=== PATIENT | female | born 1990 | race Caucasian/White ===

== ENCOUNTER 2018-03-23 21:04 | Inpatient (IN) ==
--- NOTE | 2018-03-23 21:52 | XR ---
EXAM DATE: 03/23/2018 9:22 PM EDT AGE/SEX: 27 years / Female INDICATIONS: . Chest pain and shortness of breath for 24 hours. CLINICAL DATA: This is the patient's initial encounter. Patient reports that signs and symptoms have been present for 1 day and indicates a pain score of 4/10. MEDICAL/SURGICAL HISTORY: . Smoker. Collapsed lung 04/2017. None. COMPARISON: No prior exams available for comparison. FINDINGS: AP and lateral views of the chest demonstrate the lungs to be symmetrically hyper aerated without jose dence of mass, infiltrate or effusion. The cardiomediastinal contours are unremarkable. Osseous str uctures are intact. CONCLUSION: Hyperinflation probably due to a deep inspiratory effort with no acute cardiopulmonary process. Electronically signed by: Loc Soto MD 03/23/2018 9:50 PM EDT
[2018-03-23] MEDS ORDERED: Ketorolac Inj 30 MG/ML (IVP) Vial IV.PUSH ONE (23:03)
--- NOTE | 2018-03-23 23:06 | ED ---
HPI General Chief Complaint: Chest Pain Stated Complaint: Patient states chest pain Time Seen by Provider: 03/23/18 22:56 Source: patient Mode of arrival: ambulatory Limitations: no limitations History of Present Illness HPI narrative: The patient is a 27-year-old female who presents to the emergency department for chest pain and shortness of breath. The patient developed shortness of breath yesterday that was followed by chest pain. The chest pain is anterior, sharp, located just to the right of the sternal border, and intermittent. The pain is worse with inspiration and movement. The patient has had similar pain in the past secondary to a pneumothorax that was less than 10% per the patient's report, treated with oxygenation and hospitalization tube was placed at that time. The patient denies any cough. The patient denies any control, recent surgery, recent travel, or recent prolonged hospitalization. The patient denies any lower extremity edema. The patient denies . She denies any associated nausea, vomiting, diarrhea , abdominal pain, or fever. Symptoms are moderate. There are no current alleviating or exacerbating factors MD complaint: Reports chest pain STEMI Alert: No Onset (ago): day(s) Duration: intermittent Onset: other Pain location: Reports right chest Severity: moderate Severity scale (1-10): 6 Quality: Reports sharp Pain radiation: Reports back Relieving factors: nothing Exacerbating factors: inspiration and movement Context: Reports other (hx of PTX) Associated symptoms: Reports nausea Treatments prior to arrival chest pain: Reports none Related Data On Oral Contraceptives: No Home Medications Medication Instructions Recorded Confirmed No Known Home Medications 03/23/18 03/23/18 No Known Home Medications 03/23/18 03/23/18 Allergies Allergy/AdvReac Type Severity Reaction Status Date / Time Penicillins Allergy Rash Verified 03/23/18 21:17 Sulfa (Sulfonamide Allergy Edema Verified 03/23/18 21:17 Antibiotics) Review of Systems ROS: all other systems reviewed are negative [facility] Medical History Medical History delivery delivered (Acute) Collapsed lung (Acute) IBS (irritable bowel syndrome) (Acute) Panic attack (Acute) Social History Social History Substance History: No History of Abuse Smoking Status: Heavy tobacco smoker Tobacco Type: Cigarettes How Often Do You Have a Drink Containing Alcohol: Monthly or less Recent Travel in [facility] within the Last 8 Weeks: No Recent Out of Country Travel within the Last 8 Weeks: No Exam Narrative Exam Narrative: GENERAL: Awake, alert, pleasant 27-year-old female who appears her stated age and is in no acute respiratory distress. SKIN: Focused skin assessment warm/dry. HEAD: Atraumatic. Normocephalic. EYES: Pupils equal and round. No scleral icterus. No injection or drainage. ENT: No nasal bleeding or discharge. Mucous membranes pink and moist. NECK: Trachea midline. No JVD. CARDIOVASCULAR: Regular rate and rhythm. No murmur appreciated. Palpation the chest wall does not reproduce symptoms. RESPIRATORY: No accessory muscle use. Clear to auscultation. Breath sounds equal bilaterally. GASTROINTESTINAL: Abdomen soft, non-tender, nondistended. MUSCULOSKELETAL: No obvious deformities. No clubbing. No cyanosis. No edema. Movement of the right upper extremity against resistance does not exacerbate symptoms. NEUROLOGICAL: Awake and alert. No obvious cranial nerve deficits. Motor grossly within normal limits. Normal speech. PSYCHIATRIC: Appropriate mood and affect; insight and judgment normal. Course Initial Documented Vital Signs Temperature 98.5 F 03/23/18 21:17 Pulse Rate 76 03/23/18 21:17 Respiratory Rate 18 03/23/18 21:17 Blood Pressure 115/65 03/23/18 21:17 Pulse Oximetry 100 03/23/18 21:17 Last Documented Vital Signs Temperature 98.5 F 03/23/18 21:17 Pulse Rate 68 03/23/18 23:29 Respiratory Rate 14 03/23/18 23:25 Blood Pressure 117/70 03/23/18 23:25 Pulse Oximetry 100 03/23/18 23:49 Medical Decision Making [facility] Narrative Medical decision making narrative: IV was established, labs are drawn and sent, and the patient was placed on cardiac telemetry monitoring and continuous pulse oximetry monitoring. EKG was ordered and interpreted. Chest x-ray was obtained. The patient does have a history pneumothorax, chest x-ray reveals no obvious pneumothorax, d-dimer was sent to lab. The patient was administered Toradol 30 mg intravenously for pain. CPK and troponin were sent to lab to evaluate for possible pericarditis/myocarditis. Patient's white count was normal at 10.0. D-dimer was negative, therefore, no indication for CT pulmonary angiogram. However, patient does have a history pneumothorax, initial chest x-ray was negative. Unexplained pleurisy, therefore, CT of the thorax without IV contrast was ordered revealing cavitary lesions in the upper lobes bilaterally suspicious for septic emboli or bronchopneumonia. The patient denies any history of IV drug abuse. She has no current fever or cough , unexplained cavitary lesions are somewhat concerning. Therefore, patient was covered with Rocephin and Zithromax and will be admitted to the medical service. Medical Screen Exam Complete: Yes Emergency Medical Condition: Yes Differential Diagnosis Differential Diagnosis: Differential diagnosis includes pericarditis, myocarditis, pneumothorax, pulmonary embolism, costochondritis, musculoskeletal pain, pleurisy, pneumonia. Lab Data Result diagrams: 03/23/18 23:20 03/23/18 23:20 Lab Results 03/23/18 03/23/18 03/23/18 Range/Units 23:20 23:20 23:20 WBC 10.0 (4.0-11.0) th/mm3 RBC 5.32 H (4.00-5.30) mil/mm3 Hgb 15.3 (11.6-15.3) gm/dL Hct 45.2 (35.0-46.0) % MCV 85.0 (80.0-100.0) fL MCH 28.8 (27.0-34.0) pg MCHC 33.9 (32.0-36.0) % RDW 13.8 (11.6-17.2) % Plt Count 212 (150-450) th/mm3 MPV 8.1 (7.0-11.0) fL Neut % (Auto) 57.8 (16.0-70.0) % Lymph % (Auto) 32.3 (9.0-44.0) % [place] % (Auto) 7.6 (0.0-8.0) % Eos % (Auto) 1.8 (0.0-4.0) % Baso % (Auto) 0.5 (0.0-2.0) % Neut # (Auto) 5.8 (1.8-7.7) th/mm3 Lymph # (Auto) 3.2 (1.0-4.8) th/mm3 [place] # (Auto) 0.8 (0.0-0.9) th/mm3 Eos # (Auto) 0.2 (0.0-0.4) th/mm3 Baso # (Auto) 0.0 (0.0-0.2) th/mm3 WBC Differential . Differential Comment Auto diff final D-Dimer Quant (PE/DVT) 0.22 (0.00-0.50) mg/L FEU Sodium 138 (136-145) meq/L Potassium 3.7 (3.5-5.1) meq/L Chloride 105 (98-107) meq/L Carbon Dioxide 25.7 (21.0-32.0) meq/L Anion Gap 7 (5-15) meq/L BUN 12 (7-18) mg/dL Creatinine 0.69 (0.50-1.00) mg/dL Estimated GFR Greater than 89 (>89) mL/min Random Glucose 88 (74-106) mg/dL Calcium 8.9 (8.5-10.1) mg/dL Total Bilirubin 0.3 (0.2-1.0) mg/dL AST 10 L (15-37) U/L ALT 22 (10-53) U/L Alkaline Phosphatase 61 (45-117) U/L Total Creatine Kinase 65 (26-192) U/L Troponin I Less than 0.02 L (0.02-0.05) ng/mL Total Protein 7.6 (6.4-8.2) g/dL Albumin 4.0 (3.4-5.0) g/dL Imaging Data Attestation: I personally reviewed and interpreted this imaging study as follows : My impression: Chest x-ray reveals no obvious pneumothorax Radiologist's impression: Chest X-Ray 03/23/18 21:22 CONCLUSION: Hyperinflation probably due to a deep inspiratory effort with no acute cardiopulmonary process. Chest CT 03/24/18 00:00 CONCLUSION: Multiple small focal patchy densities seen in the upper lungs with at least 2 of these been partially cavitary. This raises the possibility of septic emboli versus bronchopneumonia. ECG Data EKG Prior to Arrival: No Attestation: I personally reviewed and interpreted this ECG as follows: Interpretation: EKG reveals normal sinus rhythm with a rate of 60 changes or ectopy noted. No MS depression or ST elevation noted. Discharge Plan Discharge Disposition Patient Disposition: 30 Still Patient Discharge Condition Condition: Stable Discharge Details Diagnosis: Pulmonary cavitary lesion Physicians Team ED Provider: Markus Luong Primary Care Provider: Primary Care PhysiciMalou Rxs /Orders / Referrals /Forms Prescriptions: No Action No Known Home Medications RF: 0 No Known Home Medications RF: 0 Discharge Instructions Patient Printed Instructions: Chest Pain (ED) Status ED Status: Pending Admission
[2018-03-23 23:34] LABS: Baso % (Auto) 0.5 % (0.0-2.0); Eos # (Auto) 0.2 th/mm3 (0.0-0.4); Eos % (Auto) 1.8 % (0.0-4.0); Hematocrit 45.2 % (35.0-46.0); Hemoglobin 15.3 gm/dL (11.6-15.3); Lymph # (Auto) 3.2 th/mm3 (1.0-4.8); Lymph % (Auto) 32.3 % (9.0-44.0); Mean Corpuscular HGB Conc 33.9 % (32.0-36.0); Mean Corpuscular Hemoglobin 28.8 pg (27.0-34.0); Mean Platelet Volume 8.1 fL (7.0-11.0); Mono # (Auto) 0.8 th/mm3 (0.0-0.9); Mono % (Auto) 7.6 % (0.0-8.0); Neut # (Auto) 5.8 th/mm3 (1.8-7.7); Neut % (Auto) 57.8 % (16.0-70.0); Platelet Count 212 th/mm3 (150-450); Red Blood Count 5.32 mil/mm3 (4.00-5.30); Red Cell Distribution Width 13.8 % (11.6-17.2)
[2018-03-23 23:54] LABS: Anion Gap 7 meq/L (5-15); Aspartate Aminotransferase 10 U/L (15-37); Blood Urea Nitrogen 12 mg/dL (7-18); Calcium 8.9 mg/dL (8.5-10.1); Carbon Dioxide 25.7 meq/L (21.0-32.0); Chloride 105 meq/L (98-107); Glomerular Filtration Rate Greater Than 89 mL/min (>89); Glucose,Random 88 mg/dL (74-106); Potassium 3.7 meq/L (3.5-5.1); Sodium 138 meq/L (136-145)
[2018-03-23 23:55] LABS: Alanine Aminotransferase 22 U/L (10-53)
[2018-03-23 23:59] LABS: Alkaline Phosphatase 61 U/L (45-117); Total Protein 7.6 g/dL (6.4-8.2)
[2018-03-24 00:01] LABS: Creatine Kinase 65 U/L (26-192)
--- NOTE | 2018-03-24 01:03 | CT ---
EXAM DATE: 03/24/2018 12:06 AM EDT AGE/SEX: 27 years / Female INDICATIONS: Right upper chest pain and shortness of breath. CLINICAL DATA: This is the patient's initial encounter. Patient reports that signs and symptoms have been present for 2 days and indicates a pain score of 10/10. MEDICAL/SURGICAL HISTORY: . Pneumothorax. None. RADIATION DOSE: 5.30 CTDI (mGy) COMPARISON: No prior exams available for comparison. TECHNIQUE: Multiple contiguous axial images were obtained through the chest without contrast. Image s were obtained in suspended respiration using multiple row detector helical technique. Using automa krystle exposure control and adjustment of the mA and/or kV according to patient size, radiation dose was kept as low as reasonably achievable to obtain optimal diagnostic quality images. DICOM format imag e data is available electronically for review and comparison. FINDINGS: Lungs: There are several small patchy areas of focal density seen in the upper lungs bilaterally. Th e 2 largest areas in the left upper lung measuring up to 1.4 cm appear partially cavitary. Mediastinum: There is good visualization of the great vessels of the middle mediastinum. No evidenc e of mediastinal or hilar adenopathy/mass. Pleurae: No evidence of focal thickening or pleural effusion. Axillae: Unremarkable. Bony Structures: Unremarkable. Miscellaneous: The examination was extended to include the upper abdomen, and both adrenal glands ar e normal in size and configuration. CONCLUSION: Multiple small focal patchy densities seen in the upper lungs with at least 2 of these been partially cavitary. This raises the possibility of septic emboli versus bronchopneumonia. Electronically signed by: Umesh Rosado MD 03/24/2018 1:02 AM EDT
[2018-03-24] MEDS ORDERED: Azithromycin Inj 500 MG in Sodium Chlor 0.9% Inj 250 ML IV.SIG ONE (01:09)
[2018-03-24] MEDS ORDERED: Morphine Inj 4 MG/ML Vial IV.PUSH ONE (01:09)
[2018-03-24] MEDS ORDERED: Sod Chloride 0.9% Inj 1,000 ML IV.SIG SCH (01:15)
[2018-03-24] MEDS ORDERED: Bisacodyl 10 MG Supp RECTAL PRN (04:42)
[2018-03-24] MEDS ORDERED: Acetaminophen 325 MG Tablet PO PRN (04:42)
--- NOTE | 2018-03-24 09:07 | P.HPIM ---
History of Present Illness Service: [facility] Primary Care Physician: No Primary Care Physician Chief Complaint: Chest pain History of Present Illness: 27-year-old female who reports a history of a small spontaneous pneumothorax a year ago presented to the hospital with complaint of pleuritic type chest pain. The pain has been present for the past couple of days and seems to have gotten worse with deep breathing. She denies cough, fever, or sick contact. She reports difficulty breathing at times due to the pain. She reports her symptoms has been intermittent. She is an every day smoker. She denies illicit drug use, specifically IV drug use. Chest CT in the emergency room is read as "multiple small focal patchy densities seen in the upper lungs with at least 2 of these been partially cavitary. This raises the possibility of septic emboli versus bronchopneumonia". The patient will be admitted for further workup and treatment. - Diagnosis (1) Pleuritic chest pain (2) Pulmonary cavitary lesion Inpatient Certification: I certify that the inpatient services were ordered in accordance with Medicare regulations governing the order. This includes certification that hospital inpatient services are reasonable and necessary and in the case of services not specified as inpatient-only under 42 CFR 419.22(n), that they are appropriately provided as inpatient services in accordance to with the 2-midnight benchmark under 43 CFR 412.3(e) Estimated Total Length of Stay (Days): 2 Plans for Post Hospital Care: Not yet determined Review of Systems All other systems reviewed negative except as stated [facility] - History History Provided By: Patient - Medical History Medical History: Medical History (Last Updated 03/24/18 @ 10:42 by Jean Claude Cooper MD) delivery delivered (Acute) Collapsed lung IBS (irritable bowel syndrome) Panic attack - Family History Family History: Family History (Last Updated 03/24/18 @ 10:43 by Jean Claude Cooper MD) Other Family history reviewed with no changes - Social History I have reviewed the patient's Social History: Yes - Tobacco History Tobacco Use In Past 30 Days: Yes Smoking Status: Heavy tobacco smoker Tobacco Type: Cigarettes - Alcohol History How Often Do You Have a Drink Containing Alcohol: Monthly or less - Substance Use History Substance History: No History of Abuse - Travel History Recent Travel in the [place] Within the Last 8 Weeks: No Recent Travel Out of the Country Within the Last 8 Weeks: No - Immunization History Tetanus Immunization: >5 Years Medications and Allergies Active Medications: Active Medications Acetaminophen (Tylenol) 650 mg PO Q4H PRN PRN Reason: Temp > 100.4 Last Admin: 03/24/18 08:13 Dose: 650 mg Al Hydroxide/Mg Hydroxide (Milk Of Magnesia Liq) 30 ml PO Q12H PRN PRN Reason: Mild Constipation Bisacodyl (Dulcolax Supp) 10 mg RECTAL DAILY PRN PRN Reason: SEVERE CONSITIPATION Sodium Chloride (Ns Inj) 1,000 mls @ 0 mls/hr IV.SIG BOLUS PEDRO Last Infusion: 03/24/18 02:29 Dose: Infused Azithromycin 500 mg/ Sodium (Chloride) 250 mls @ 250 mls/hr IV.SIG Q24H PEDRO Ceftriaxone Sodium 1,000 mg/ (Sodium Chloride) 100 mls @ 200 mls/hr IV.SIG Q24H PEDRO Lactulose (Lactulose Liq) 30 ml PO DAILY PRN PRN Reason: SEVERE CONSITIPATION Ondansetron HCl (Zofran Inj) 4 mg IV.PUSH Q6H PRN PRN Reason: NAUSEA OR VOMITING Senna/Docusate Sodium (Carolyn-Colace) 1 tab PO BID PEDRO Sennosides (Senokot) 17.2 mg PO Q12H PRN PRN Reason: Moderate Constipation Sodium Chloride (Ns Flush) 2 ml IV.FLUSH UNSCH PRN PRN Reason: FLUSH AFTER USING IV ACCESS Allergies Allergy/AdvReac Type Severity Reaction Status Date / Time Penicillins Allergy Rash Verified 03/23/18 21:17 Sulfa (Sulfonamide Allergy Edema Verified 03/23/18 21:17 Antibiotics) Home Medications Medication Instructions Recorded Confirmed Type No Known Home Medications 03/23/18 03/23/18 History No Known Home Medications 03/23/18 03/23/18 History Exam Vital signs: Vital Signs 03/23/18 21:17 03/23/18 23:25 03/23/18 23:29 Temperature 98.5 F Pulse Rate 76 72 68 Respiratory Rate 18 14 Blood Pressure 115/65 117/70 Pulse Oximetry 100 100 100 03/23/18 23:49 03/24/18 01:50 03/24/18 06:12 Temperature 98.4 F Pulse Rate 69 Respiratory Rate 20 20 Blood Pressure 110/69 Pulse Oximetry 100 03/24/18 07:42 03/24/18 08:00 Temperature Pulse Rate 59 L Respiratory Rate 20 Blood Pressure 98/59 L Pulse Oximetry 98 99 Intake & Output 03/23/18 03/24/18 03/24/18 18:59 06:59 18:59 Intake Total 1350 / 1350 480 / 480 Balance 1350 / 1350 480 / 480 Weight 52.163 kg Intake: IV 1350 / 1350 Azithromycin Inj 500 MG In NS 250 / 250 Inj 250 ML @ 250 mls/hr IV.SIG ONCE ONE Rx#:[id number] NS Inj 1,000 ML @ Wide Open IV. 1000 / 1000 SIG BOLUS PEDRO Rx#:[id number] Rocephin Inj 1,000 MG In NS Inj 100 / 100 100 ML @ 200 mls/hr IV.SIG ONCE ONE Rx#:[id number] Oral 480 / 480 Narrative: CONSTITUTIONAL/GENERAL: This is an adequately nourished patient, in no apparent distress. Vital signs reviewed. Patient endorsed chest discomfort with deep breathing. SKIN: No jaundice, rashes, or concerning lesions. Not diaphoretic. HEAD: Atraumatic. Normocephalic. EYES: Pupils equal and round and reactive. Extra ocular motions are intact. No scleral icterus. No injection or drainage. ENT: Hearing grossly normal. Nose without drainage. Throat without visible erythema, exudates, masses, or lesions. NECK: Trachea midline. Neck is supple, non-tender. No palpable thyroid enlargement or nodularity. CARDIOVASCULAR: Normal rate and regular rhythm without murmurs, gallops, or rubs. No JVD. Peripheral pulses 2+ and symmetric. RESPIRATORY/CHEST: Symmetric, unlabored respirations. Chest discomfort with inspiration. Breath sounds equal and clear to auscultation bilaterally. No wheezes, crackles, rales, or rhonchi. GASTROINTESTINAL: Abdomen soft, non-tender, non-distended. No hepato- splenomegaly, or palpable masses. No guarding. Bowel sounds present. MUSCULOSKELETAL: Extremities without clubbing, cyanosis, or edema. No joint tenderness or effusion noted. No calf tenderness. No mottling or clubbing. NEUROLOGICAL: Awake and alert. Motor and sensory grossly within normal limits. Follows commands. Move all extremities spontaneously. No focal deficits. PSYCHIATRIC: No obvious mood problems. No apparent hallucinations or other psychotic thought process. Results - Labs CBC & Chem 7: 10/23/18 23:20 03/23/18 23:20 Labs: Short CBC 03/23/18 Range/Units 23:20 WBC 10.0 (4.0-11.0) th/mm3 Hgb 15.3 (11.6-15.3) gm/dL Hct 45.2 (35.0-46.0) % Plt Count 212 (150-450) th/mm3 BMP 03/23/18 23:20 Sodium 138 Potassium 3.7 Chloride 105 Carbon Dioxide 25.7 BUN 12 Creatinine 0.69 Calcium 8.9 Cardiac Enzymes 03/23/18 Range/Units 23:20 Total Creatine Kinase 65 (26-192) U/L Troponin I Less than 0.02 L (0.02-0.05) ng/mL Liver Function 03/23/18 Range/Units 23:20 Total Bilirubin 0.3 (0.2-1.0) mg/dL AST 10 L (15-37) U/L ALT 22 (10-53) U/L Alkaline Phosphatase 61 (45-117) U/L Albumin 4.0 (3.4-5.0) g/dL - Imaging Impressions Chest X-Ray 03/23/18 21:22 CONCLUSION: Hyperinflation probably due to a deep inspiratory effort with no acute cardiopulmonary process. Chest CT 03/24/18 00:00 CONCLUSION: Multiple small focal patchy densities seen in the upper lungs with at least 2 of these been partially cavitary. This raises the possibility of septic emboli versus bronchopneumonia. Caprini VTE Risk Assessment Caprini VTE Risk Assessment: No/Low Risk (score <= 1) Caprini Risk Assessment Model: Point Value = 1 Point Value = 2 Point Value = 3 Point Value = 5 Age 41-60 Minor surgery BMI > 25 kg/m2 Swollen legs Varicose veins or History of unexplained or recurrent spontaneous Oral contraceptives or hormone replacement Sepsis (< 1 month) Serious lung disease, including pneumonia (< 1 month) Abnormal pulmonary function Acute myocardial infarction Congestive heart failure (< 1 month) History of inflammatory bowel disease Medical patient at bed rest Age 61-74 Arthroscopic surgery Major open surgery (> 45 min) Laparoscopic surgery (> 45 min) Malignancy Confined to bed (> 72 hours) Immobilizing plaster cast Central venous access Age >= 75 History of VTE Family history of VTE Factor V Leiden Prothrombin [id number] Lupus anticoagulant Anticardiolipin antibodies Elevated serum homocysteine Heparin-induced thrombocytopenia Other congenital or acquired thrombophilia Stroke (< 1 month) Elective arthroplasty Hip, pelvis, or leg fracture Acute spinal cord injury (< 1 month) Prophylaxis Regimen: Total Risk Factor Score Risk Level Prophylaxis Regimen 0-1 Low Early ambulation 2 Moderate Order ONE of the following: *Sequential Compression Device (SCD) *Heparin 5000 units SQ BID 3-4 Higher Order ONE of the following medications: *Heparin 5000 units SQ TID *Enoxaparin/Lovenox 40 mg SQ daily (WT < 150 kg, CrCl > 30 mL/min) *Enoxaparin/Lovenox 30 mg SQ daily (WT < 150 kg, CrCl > 10-29 mL/min) *Enoxaparin/Lovenox 30 mg SQ BID (WT < 150 kg, CrCl > 30 mL/min) AND/OR *Sequential Compression Device (SCD) 5 or more Highest Order ONE of the following medications: *Heparin 5000 units SQ TID (Preferred with Epidurals) *Enoxaparin/Lovenox 40 mg SQ daily (WT < 150 kg, CrCl > 30 mL/min) *Enoxaparin/Lovenox 30 mg SQ daily (WT < 150 kg, CrCl > 10-29 mL/min) *Enoxaparin/Lovenox 30 mg SQ BID (WT < 150 kg, CrCl > 30 mL/min) AND *Sequential Compression Device (SCD) Assessment and Plan - Assessment (1) Pleuritic chest pain Code(s): R07.81 - Pleurodynia Status: Acute (2) Pulmonary cavitary lesion Code(s): J98.4 - Other disorders of lung Status: Acute - Plan 27-year-old female with history of a small spontaneous pneumothorax 1 year ago presented with pleuritic chest pain and was found to have partial pulmonary cavitary lesions concerning for septic emboli versus bronchopneumonia - Continue empiric treatment with Rocephin and azithromycin. - Consult pulmonology - Monitor for signs of sepsis. - Incentive spirometry. - Pain control with Tylenol and [place] for breakthrough pain. -[place] noting the patient adamantly denies illicit/IV drug use. She does not have any stigmata of chronic IV drug user. She also denies any symptoms of pneumonia such as cough or fever. No clear source for septic emboli. -Pending pulmonology input, if she continues to be stable, can consider empiric treatment with oral antibiotics and have a follow-up CAT scan outpatient. Of course if she were to develop any fevers or infectious symptoms she would need further evaluation. - Follow up blood cultures. Tobacco abuse: - The patient was extensively counseled about tobacco cessation especially given her history of previous spontaneous pneumothorax.
--- NOTE | 2018-03-24 09:59 | ECG ---
Date Performed: 03/23/2018 Time Performed: 21:27:56 PTAGE: 27 years EKG: Baseline artifact present Sinus rhythm NORMAL ECG NO PREVIOUS TRACING DOCTOR: Mark Guerra Interpretating Date/Time 03/24/2018 09:58:12
[2018-03-24] MEDS: Senna/Docusate Sodium 8.6/50 MG Tablet PO SCH ×2 (10:48→20:29)
--- NOTE | 2018-03-24 11:57 | P.PNIM ---
Subjective Interval history: f/u; pneumonia in no acute distress. no fever. has pleuritic chest pain. no cough. Physical Exam Vital signs: Vital Signs 03/23/18 21:17 03/23/18 23:25 03/23/18 23:29 Temperature 98.5 F Pulse Rate 76 72 68 Respiratory Rate 18 14 Blood Pressure 115/65 117/70 Pulse Oximetry 100 100 100 03/23/18 23:49 03/24/18 01:50 03/24/18 06:12 Temperature 98.4 F Pulse Rate 69 Respiratory Rate 20 20 Blood Pressure 110/69 Pulse Oximetry 100 03/24/18 07:42 03/24/18 08:00 Temperature Pulse Rate 59 L Respiratory Rate 20 Blood Pressure 98/59 L Pulse Oximetry 98 99 Intake & Output 03/23/18 03/24/18 03/24/18 18:59 06:59 18:59 Intake Total 1350 / 1350 480 / 480 Balance 1350 / 1350 480 / 480 Weight 52.163 kg Intake: IV 1350 / 1350 Azithromycin Inj 500 MG In NS 250 / 250 Inj 250 ML @ 250 mls/hr IV.SIG ONCE ONE Rx#:[id number] NS Inj 1,000 ML @ Wide Open IV. 1000 / 1000 SIG BOLUS PEDRO Rx#:[id number] Rocephin Inj 1,000 MG In NS Inj 100 / 100 100 ML @ 200 mls/hr IV.SIG ONCE ONE Rx#:[id number] Oral 480 / 480 - Constitutional no acute distress - Routine Respiratory Exam Present: CTA bilaterally Comments: diminished in bases. - Routine Cardiovascular Exam Present: RRR - Routine Abdominal Exam Present: soft - Routine Extremities Exam Comments: no pedal edema. - Routine Neurological Exam Present: alert, oriented X3 Results - Labs CBC & Chem 7: 03/23/18 23:20 03/23/18 23:20 Laboratory Results - last 24 hr 03/23/18 03/23/18 03/23/18 23:20 23:20 23:20 WBC 10.0 RBC 5.32 H Hgb 15.3 Hct 45.2 MCV 85.0 MCH 28.8 MCHC 33.9 RDW 13.8 Plt Count 212 MPV 8.1 Neut % (Auto) 57.8 Lymph % (Auto) 32.3 [place] % (Auto) 7.6 Eos % (Auto) 1.8 Baso % (Auto) 0.5 Neut # (Auto) 5.8 Lymph # (Auto) 3.2 [place] # (Auto) 0.8 Eos # (Auto) 0.2 Baso # (Auto) 0.0 WBC Differential . Differential Comment Auto diff final D-Dimer Quant (PE/DVT) 0.22 Sodium 138 Potassium 3.7 Chloride 105 Carbon Dioxide 25.7 Anion Gap 7 BUN 12 Creatinine 0.69 Estimated GFR Greater than 89 Random Glucose 88 Calcium 8.9 Total Bilirubin 0.3 AST 10 L ALT 22 Alkaline Phosphatase 61 Total Creatine Kinase 65 Troponin I Less than 0.02 L Total Protein 7.6 Albumin 4.0 - Imaging Impressions Chest X-Ray 03/23/18 21:22 CONCLUSION: Hyperinflation probably due to a deep inspiratory effort with no acute cardiopulmonary process. Chest CT 03/24/18 00:00 CONCLUSION: Multiple small focal patchy densities seen in the upper lungs with at least 2 of these been partially cavitary. This raises the possibility of septic emboli versus bronchopneumonia. Assessment and Plan - Assessment (1) Pleuritic chest pain Code(s): R07.81 - Pleurodynia Status: Acute (2) Pulmonary cavitary lesion Code(s): J98.4 - Other disorders of lung Status: Acute - Plan 27-year-old female with history of a small spontaneous pneumothorax 1 year ago presented with pleuritic chest pain and was found to have partial pulmonary cavitary lesions concerning for septic emboli versus bronchopneumonia - Continue empiric treatment with Vancomycin and Zosyn. - Consulted pulmonology -will consult ID - Monitor for signs of sepsis. - Incentive spirometry. - Pain control with Tylenol and [place] for breakthrough pain. -[place] noting the patient adamantly denies illicit/IV drug use. She does not have any stigmata of chronic IV drug user. She also denies any symptoms of pneumonia such as cough or fever. No clear source for septic emboli. will check urine toxicology. - Follow up blood cultures. Discharge Planning: home- pending w/u and pulmonary consult.
[2018-03-24] MEDS ORDERED: Vancomycin Consult Pharmacy OTHER PRN (13:50)
[2018-03-24] MEDS ORDERED: Vancomycin Inj 1 GM/200 ML PIGGYBACK IV.SIG ONE (13:51)
[2018-03-24] MEDS: Morphine Inj 4 MG/ML Vial IV.PUSH PRN ×3 (14:29→23:01)
--- NOTE | 2018-03-24 14:55 | MB ---
cc: Kirt Solano MD DATE: 03/24/2018 REASON FOR CONSULTATION: Abnormal CT chest. REFERRING PHYSICIAN: Jean Claude Cooper MD HISTORY OF PRESENT ILLNESS: The patient is a 27-year-old female with a past medical history of anxiety disorder, right-sided spontaneous pneumothorax one year ago, who presented to [facility] ED with a 2-day history of midsternal chest pain radiating to her back and associated with shortness of breath. Her symptoms are worse with deep inspiration, exertion and any type of movements. She denies any prior history of pneumonia or exposure to sick contacts. The patient works in a [employer] center here in [facility]. In the ED, she had a CT chest without contrast, which showed several small patchy areas of focal density seen in the upper lungs bilaterally with some partial cavitation. The patient denies any history of IV drug use. In addition, she denies any history of fever, chills or constitutional symptoms. Furthermore, she denies any history of hemoptysis, hematemesis, or GI symptoms. She had a root canal and dental cleaning approximately 2 months ago. She is an active smoker with a [id number] history of smoking. Regarding her right-sided spontaneous pneumothorax from a year ago, it was treated conservatively with oxygen per patient and she did not have any chest tube insertion at that time. When seen, she is on room air oxygen with a blood pressure of 108/62 complaining of chest pain. PAST MEDICAL HISTORY: Significant for right-sided spontaneous pneumothorax, anxiety disorder, IBS, anemia, vitamin D deficiency. PAST SURGICAL HISTORY: Previous colonoscopy x2, previous section x3. ALLERGIES: 1. PENICILLIN. 2. SULFA. 3. CIPRO. SOCIAL HISTORY: Active smoker with a [id number] history of smoking. Occasional drinker. REVIEW OF SYSTEMS: As per HPI. The rest of review of systems unremarkable. PHYSICAL EXAMINATION: GENERAL: A 27-year-old female, lying in bed, in mild distress. VITAL SIGNS: Temperature 96.8, pulse of 77, respiratory rate of 16, blood pressure 108/62, saturation of 97% on room air. HEENT: Atraumatic, normocephalic. Pupils are equal, round, reactive to light and accommodation. Extraocular muscles intact. Conjunctivae pink. Nonicteric sclerae. Oral mucosa within normal. NECK: Supple. No JVD, adenopathy or thyromegaly. Trachea in the midline. CARDIOVASCULAR: Regular rate and rhythm. Normal S1, S2. No murmurs, rubs or gallops. PULMONARY: Bilateral equal air entry. No rales or wheezing. ABDOMEN: Soft, nontender. No distention. Positive bowel sounds. EXTREMITIES: No cyanosis, clubbing, edema. NEUROLOGIC: No focal sensory deficit. LABORATORY DATA: Sodium 138, potassium 3.7, chloride 105, CO2 of 25, BUN 12, creatinine 0.69, glucose 88. Troponin less than 0.02. RADIOGRAPHIC STUDIES: CT chest showed multiple small focal patchy densities in the upper lobes with partial cavitary areas. IMPRESSION: 1. Multiple patchy densities in upper lungs with partial cavitation. Differential diagnosis of bronchopneumonia versus septic emboli. 2. Atypical chest pain. 3. Dyspnea. 4. History of right-sided spontaneous pneumothorax one 1 ago. 5. Active tobacco use. 6. History of anxiety disorder. RECOMMENDATIONS: 1. Oxygen p.r.n. to maintain saturations above 92%. 2. Bronchodilators in the form of DuoNeb every 6 hours plus every 2 hours p.r.n. for shortness of breath. 3. Will broaden antibiotic coverage and placed on vancomycin and aztreonam. Of note, THE PATIENT IS ALLERGIC TO PENICILLIN. 4. Follow up on blood cultures. We will obtain a sputum culture with Gram stain. Check Streptococcus pneumoniae and Legionella urinary antigen and will send a nasal washing to rule out influenza. 5. Consult infectious disease service. 6. If her blood culture is positive, we will need a 2-D echo to rule out endocarditis. 7. Pain control with morphine. 8. The patient is counseled regarding smoking cessation. 9. Check a urine toxicology screen. 10. GI and DVT prophylaxis per primary team. 11. Further recommendations will be based on hospital course. Thank you for this consultation and allowing us to participate in this patient's care. MD ANANTH Eduardo/hawk , 02:26 PM , 02:37 PM
[2018-03-24] MEDS ORDERED: Vancomycin Inj 1,000 MG in Sodium Chlor 0.9% Inj 250 ML IV.SIG ONE (15:00)
[2018-03-24 15:19] LABS: Barbiturate Screen,Urine Neg (Neg)
[2018-03-24 15:20] LABS: Amphetamine Screen,Urine Neg (Neg); Cannabinoid Screen,Urine Neg (Neg); Cocaine Screen,Urine Neg (Neg)
[2018-03-24] MEDS: Sod Chloride 0.9% Inj 1,000 ML IV.CONT SCH (15:28)
[2018-03-24 15:30] LABS: Opiate Screen,Urine Neg (Neg)
[2018-03-24] MEDS ORDERED: Piperacil/Tazo 3.375 GM Premix 50 ML IV.SIG SCH (16:00)
--- NOTE | 2018-03-24 17:30 | ECHRPT ---
Indication: Sepsis Possible Endocarditis CONCLUSIONS The left ventricular systolic function is normal with an estimated ejection fraction in the range of 55-60%. Left ventricular diastolic function parameters are normal. Trace mitral valve regurgitation. There is trace tricuspid valve regurgitation. BP: / HR: Rhythm: MEASUREMENTS (Male / Female) Normal Values Technical Quality:Fair 2D ECHO LV Diastolic Diameter PLAX 4.1 cm 4.2 - 5.9 / 3.9 - 5.3 cm LV Systolic Diameter PLAX 2.9 cm IVS Diastolic Thickness 0.9 cm 0.6 - 1.0 / 0.6 - 0.9 cm LVPW Diastolic Thickness 0.8 cm 0.6 - 1.0 / 0.6 - 0.9 cm LV Relative Wall Thickness 0.4 RV Internal Dim ED PLAX 2.8 cm LVOT Diameter 2.1 cm Aortic Root Diameter 2.5 cm LA Systolic Diameter LX 2.9 cm 3.0 - 4.0 / 2.7 - 3.8 cm DOPPLER AV Peak Velocity 125.0 cm/s AV Peak Gradient 6.3 mmHg LVOT Peak Velocity 117.0 cm/s LVOT Peak Gradient 5.5 mmHg AV Area Cont Eq pk 3.2 cm Mitral E Point Velocity 105.0 cm/s Mitral A Point Velocity 53.8 cm/s Mitral E to A Ratio 2.0 LV E' Lateral Velocity 20.7 cm/s Mitral E to LV E' Lateral Ratio 5.1 LV E' Septal Velocity 14.5 cm/s Mitral E to LV E' Septal Ratio 7.2 TR Peak Velocity 227.0 cm/s TR Peak Gradient 20.6 mmHg Right Atrial Pressure 10.0 mmHg Pulmonary Artery Systolic Pressu 30.6 mmHg Right Ventricular Systolic Press 30.6 mmHg PV Peak Velocity 97.7 cm/s PV Peak Gradient 3.8 mmHg FINDINGS LEFT VENTRICLE Normal left ventricular size. Wall thickness is normal. The left ventricular systolic function is normal with an estimated ejection fraction in the range of 55-60%. Left ventricular diastolic function parameters are normal. RIGHT VENTRICLE Normal right ventricular size and systolic function. LEFT ATRIUM The left atrial size is normal. RIGHT ATRIUM The right atrial size is normal. ATRIAL SEPTUM Normal atrial septal thickness without atrial level shunting by limited color doppler interrogation. AORTA The aortic root and proximal ascending aorta are normal in size on limited imaging. MITRAL VALVE Structurally normal mitral valve. Trace mitral valve regurgitation. AORTIC VALVE Trileaflet aortic valve. No aortic valve regurgitation. No aortic valve stenosis. TRICUSPID VALVE Grossly normal There is trace tricuspid valve regurgitation. The estimated pulmonary arterial pressure is 31 mmHg. PULMONARY VALVE No pulmonary valve regurgitation or stenosis. VESSELS The inferior vena cava is normal in size. PERICARDIUM No pericardial effusion. Donato Raya DO (Electronically Signed) Final Date:24 March 2018 17:29
--- NOTE | 2018-03-24 19:25 | MB ---
cc: Gabo Harp MD DATE: 03/24/2018 REASON: Possible septic emboli. HISTORY OF PRESENT ILLNESS: This is a 27-year-old white female who developed sudden onset of chest pain and presented to the emergency department for evaluation. The patient reports to me that she was at work and someone gave a joke and she laughed very vigorously and suddenly developed chest pain. She had the chest pain overnight and the following day came to the emergency department for evaluation. She now has significant chest pain. She is holding her chest and states that every time she takes a deep breath it hurts. She has a history of spontaneous pneumothorax one year ago. A CT scan of the chest was performed and there is no evidence of pneumothorax on the CT scan. However, there are several small patchy areas of focal density seen in the upper lungs bilaterally. The lower lungs appear clear. The patient has no fever and white blood cell count is normal. She denies IV drug use. She states that she has never used drugs. She denies cough or hemoptysis. Her major issue is pain that is worse when she takes a deep breath or when she moves a certain position in bed. She denies headache. She states that she has low back pain, but that is usual for her. She has 3 children, ages 2 through 8. She denies any history or recent unusual strenuous activity lately. She smokes a pack of cigarettes a day. Blood cultures were taken and the results are pending. Influenza test is negative. Urine legionella and Streptococcus pneumoniae antigens are negative. The patient has been started on broad-spectrum antibiotics. The patient is clutching her chest at the right side of the sternum where she states most of the pain is located. D-dimer is negative. An EKG was performed and that was also unremarkable. PAST MEDICAL HISTORY: Irritable bowel syndrome, history of spontaneous pneumothorax in 04/2017, delivery, panic attacks. ALLERGIES: CIPRO, PENICILLIN, SULFA. MEDICATIONS: 1. Vancomycin. 2. Aztreonam. 3. Albuterol nebulizer. 4. Nicotine patch. 4. Morphine sulfate. 5. [place] 5. SOCIAL HISTORY: The patient smokes a pack of cigarettes a day. Occasional alcohol use. Denies drug use. FAMILY HISTORY: Noncontributory. REVIEW OF SYSTEMS: CONSTITUTIONAL: Denies fever or chills. HEAD, EARS, EYES, NOSE AND THROAT: Denies visual blurring or diplopia. Denies difficulty swallowing or soreness of the throat. Denies nasal bleeding or nasal drainage. NECK: No swelling of the neck. CARDIOVASCULAR: Denies palpitation. RESPIRATORY: Notes shortness of breath. No cough or hemoptysis or sputum production. GASTROINTESTINAL: Denies nausea, vomiting, abdominal pain or diarrhea. GENITOURINARY: Denies urgency, frequency or dysuria. MUSCULOSKELETAL: Notes back pain. Denies muscle or joint aches or pains. HEMATOPOIETIC: Denies easy bruising or bleeding. INTEGUMENTARY: Denies. No skin rash or itching. NEUROLOGIC: Denies problems with coordination. PSYCHIATRIC: Denies mood swings or depression. PHYSICAL EXAM: GENERAL: Well-developed female in no acute distress. HEENT: Head atraumatic. Pupils reactive to light. Extraocular movements intact. No icterus. Oropharynx moist mucosa. No thrush. NECK: Supple without adenopathy. No swelling. LUNGS: Clear to auscultation. CHEST: No tenderness on palpation of the anterior chest. HEART: Regular rate and rhythm. No murmurs. No rubs. No gallops. ABDOMEN: Bowel sounds present, soft, no tenderness appreciated. EXTREMITIES: No clubbing cyanosis or edema. No calf tenderness on palpation. SKIN: No rash. NEUROLOGIC: Nonfocal. PSYCH: Calm and cooperative. LABORATORY DATA: WBC 10.0, platelet count 212, 57% neutrophils, 32% lymphocytes, 7% monocytes, hemoglobin 15.3. Creatinine 0.69, BUN 12, sodium 138. Estimated GFR 89. AST 10, ALT 22. IMPRESSION: Acute onset of chest pain in a patient with an abnormal CT scan showing lung infiltrates, but no symptomatology suggesting pneumonia. D-dimer was negative, indicating that she does not have pulmonary embolism. Not pneumothorax not seen on CT scan evaluation. It is unclear to me whether the patient has infection or something else causing the severe pain in the chest. I think the pain is out of proportion to what would be expected from septic emboli and she really does not have any evidence suggesting infection, although this could be subtle. I worry possible other cause of the severe chest pain. RECOMMENDATIONS: 1. I have discussed the CT scan with radiology and we will proceed with doing CTA of the chest to make sure she does not have a subtle dissection of the aorta. It does not appear that she has any rib fracture on the radiographic studies performed so far. 2. Continue vancomycin. 3. Continue aztreonam. 4. Follow the blood cultures. 5. Monitor the studies, which have been ordered for mycoplasma evaluation for possible atypical pneumonia. Thank you for this consultation. I will follow the patient's progress with you. Gabo Harp MD FFD/ct , 05:58 PM , 06:12 PM ALYSA
--- NOTE | 2018-03-24 21:48 | CT ---
EXAM DATE: 03/24/2018 7:29 PM EDT AGE/SEX: 27 years / Female INDICATIONS: Evaluate for dissection. Chest pain. CLINICAL DATA: This is the patient's initial encounter. Patient reports that signs and symptoms have been present for 2 days and indicates a pain score of 8/10. MEDICAL/SURGICAL HISTORY: Irritable bowel syndrome. section. RADIATION DOSE: 9.49 CTDI (mGy) COMPARISON: No prior exams available for comparison. TECHNIQUE: Volumetric scanning was performed using a multi-row detector CT scanner during bolus infu tracy of 100 ml Omnipaque 350 (iohexol) nonionic water-soluble contrast as a single exam dose. The d rell was post processed with a variety of visualization algorithms including full volume maximum inten sity projection, multi-planar sliding thin slab reformation, curved planar reformation, and surface r endering techniques. Using automated exposure control and adjustment of the mA and/or kV according t o patient size, radiation dose was kept as low as reasonably achievable to obtain optimal diagnostic quality images. DICOM format image data is available electronically for review and comparison. FINDINGS: Thoracic aorta: The lumen is smooth and normal in caliber throughout its length. Standard configurati on of the arch. All 3 arch vessels are patent Abdominal Aorta: The lumen is smooth without significant narrowing or aneurysmal dilation. The pr oximal celiac and superior mesenteric arteries are patent and normal in diameter. There are solitary renal arteries bilaterally without gross abnormality. Bifurcation: Normal. Right Pelvis: The right common iliac, internal iliac, and external iliac vessels are patent without luminal irregularity. Left Pelvis: The left common iliac, internal iliac, and external iliac vessels are patent and withou t luminal irregularity. Miscellaneous: There are at least 2 nodular densities identified in the left upper lobe which show so me central cavitation. Smaller. Fissural nodule is seen in the right upper lung and there is some ple ural-parenchymal density in the superior segment of the right lower lobe and laterally in the right u pper lobe. Liver shows diminished attenuation suggesting some degree of fatty infiltration. CONCLUSION: 1. The thoracoabdominal aorta is normal throughout. No aneurysmal disease or dissection. 2. There are bilateral nodular densities in the upper lobes, most prominent on the left with some ce ntral cavitation. Findings are concerning for possible septic emboli. Pleural parenchymal densities i n the right hemithorax may represent more of the same. 3. Hepatic fatty infiltration. Electronically signed by: Loc Soto MD 03/24/2018 9:47 PM EDT
[2018-03-25] MEDS ORDERED: Azithromycin Inj 500 MG in Sodium Chlor 0.9% Inj 250 ML IV.SIG SCH (02:00)
[2018-03-25] MEDS: Vancomycin Inj 1,000 MG in Sodium Chlor 0.9% Inj 250 ML IV.SIG SCH ×2 (04:24→14:00)
[2018-03-25] MEDS: Sod Chloride 0.9% Inj 1,000 ML IV.CONT SCH ×2 (04:24→17:25)
[2018-03-25] MEDS: Morphine Inj 4 MG/ML Vial IV.PUSH PRN ×5 (04:24→23:22)
--- NOTE | 2018-03-25 06:13 | XR ---
EXAM DATE: 03/25/2018 12:00 AM EDT AGE/SEX: 27 years / Female INDICATIONS: Short of breath. CLINICAL DATA: This is the patient's subsequent encounter. Patient reports that signs and symptoms h ave been present for 3 days and indicates a pain score of 0/10. MEDICAL/SURGICAL HISTORY: None. None. COMPARISON: No prior exams available for comparison. FINDINGS: A single AP view of the chest demonstrates the lungs to be symmetrically aerated without evidence of mass, infiltrate or effusion. The cardiomediastinal contours are unremarkable. Osseous structures a re intact. There is increased density projecting over the lateral right upper chest which is likely r elated to the superior medial aspect of the scapula. CONCLUSION: No acute cardiopulmonary process. Electronically signed by: Umesh Rosado MD 03/25/2018 6:12 AM EDT
[2018-03-25 06:43] LABS: Baso # (Auto) 0.1 th/mm3 (0.0-0.2); Baso % (Auto) 2.2 % (0.0-2.0); Eos # (Auto) 0.1 th/mm3 (0.0-0.4); Eos % (Auto) 1.7 % (0.0-4.0); Hematocrit 38.3 % (35.0-46.0); Hemoglobin 12.3 gm/dL (11.6-15.3); Lymph # (Auto) 1.7 th/mm3 (1.0-4.8); Lymph % (Auto) 32.4 % (9.0-44.0); Mean Corpuscular Hemoglobin 27.6 pg (27.0-34.0); Mean Corpuscular Volume 86.2 fL (80.0-100.0); Mean Platelet Volume 8.1 fL (7.0-11.0); Mono # (Auto) 0.3 th/mm3 (0.0-0.9); Mono % (Auto) 5.7 % (0.0-8.0); Neut # (Auto) 3.1 th/mm3 (1.8-7.7); Platelet Count 160 th/mm3 (150-450); Red Blood Count 4.45 mil/mm3 (4.00-5.30); Red Cell Distribution Width 13.1 % (11.6-17.2); White Blood Count 5.3 th/mm3 (4.0-11.0)
[2018-03-25 07:01] LABS: Chloride 112 meq/L (98-107); Potassium 3.4 meq/L (3.5-5.1); Sodium 145 meq/L (136-145)
[2018-03-25 07:06] LABS: Anion Gap 9 meq/L (5-15); Blood Urea Nitrogen 6 mg/dL (7-18); Calcium 7.5 mg/dL (8.5-10.1); Carbon Dioxide 24.3 meq/L (21.0-32.0); Glucose,Random 89 mg/dL (74-106)
[2018-03-25 07:10] LABS: Glomerular Filtration Rate Greater Than 89 mL/min (>89)
[2018-03-25] MEDS: Senna/Docusate Sodium 8.6/50 MG Tablet PO SCH ×2 (08:28→22:09)
[2018-03-25] MEDS ORDERED: Azithromycin 250 MG Tablet PO SCH (09:00)
--- NOTE | 2018-03-25 10:29 | P.PNIM ---
Subjective Interval history: f/u; pneumonia in no acute distress. no fever. looks more comfortable today; sob and pain is better today. no new complaints. Physical Exam Vital signs: Vital Signs 03/24/18 12:00 03/24/18 14:32 03/24/18 16:00 Temperature 96.8 F L 96.8 F L Pulse Rate 77 69 76 Respiratory Rate 16 16 16 Blood Pressure 108/62 110/68 Pulse Oximetry 97 98 03/24/18 21:16 03/24/18 21:20 03/24/18 21:48 Temperature 97.1 F L Pulse Rate 79 68 Respiratory Rate 16 16 16 Blood Pressure 119/74 Pulse Oximetry 100 03/25/18 00:00 03/25/18 01:15 03/25/18 04:25 Temperature 97.0 F L Pulse Rate 74 66 Respiratory Rate 16 16 16 Blood Pressure 110/56 L Pulse Oximetry 98 03/25/18 04:53 03/25/18 08:00 03/25/18 10:09 Temperature 98.6 F Pulse Rate 80 83 Respiratory Rate 16 21 16 Blood Pressure 119/76 Pulse Oximetry 99 Intake & Output 03/24/18 03/25/18 03/25/18 18:59 06:59 18:59 Intake Total 830 / 830 2110 / 2110 340 / 340 Balance 830 / 830 2110 / 2110 340 / 340 Weight 52.1 kg Intake: IV 350 / 350 1150 / 1150 100 / 100 NS Inj 1,000 ML @ 84 mls/hr IV. 800 / 800 CONT .[id number] PEDRO Rx#: [id number] Azactam Inj 1,000 MG In NS Inj 100 / 100 100 / 100 100 / 100 100 ML @ 200 mls/hr IV.SIG Q8H PEDRO Rx#:[id number] Vancomycin Inj 1,000 MG In NS 250 / 250 250 / 250 Inj 250 ML @ 200 mls/hr IV.SIG Q12H PEDRO Rx#:[id number] Oral 480 / 480 960 / 960 240 / 240 Other: # Voids 2 3 - Constitutional no acute distress - Routine Respiratory Exam Present: CTA bilaterally - Routine Cardiovascular Exam Present: RRR - Routine Abdominal Exam Present: soft - Routine Extremities Exam Comments: no pedal edema. - Routine Neurological Exam Present: alert, oriented X3 Results - Labs CBC & Chem 7: 10/25/18 06:02 03/25/18 06:02 Laboratory Results - last 24 hr 03/24/18 03/25/18 03/25/18 15:08 06:02 06:02 CBC w Diff Auto diff final WBC 5.3 RBC 4.45 Hgb 12.3 D Hct 38.3 MCV 86.2 MCH 27.6 MCHC 32.0 RDW 13.1 Plt Count 160 MPV 8.1 Neut % (Auto) 58.0 Lymph % (Auto) 32.4 [place] % (Auto) 5.7 Eos % (Auto) 1.7 Baso % (Auto) 2.2 H Neut # (Auto) 3.1 Lymph # (Auto) 1.7 [place] # (Auto) 0.3 Eos # (Auto) 0.1 Baso # (Auto) 0.1 WBC Differential . Differential Comment . Sodium 145 Potassium 3.4 L Chloride 112 H Carbon Dioxide 24.3 Anion Gap 9 BUN 6 L Creatinine 0.57 Estimated GFR Greater than 89 Random Glucose 89 Calcium 7.5 L D Urine Opiates Screen Neg Ur Barbiturates Screen Neg Ur Amphetamines Screen Neg U Benzodiazepines Scrn Neg Urine Cocaine Screen Neg U Cannabinoids Screen Neg Microbiology 03/24/18 15:08 Urine - Clean Catch Urine Streptococcus pneumoniae Antigen ( M - Final Presumptive negative for streptococcus pneumoniae antigen, suggesting no current or recent infection. Infection due to Streptococcus pneumoniae cannot be ruled out since the antigen present in the sample may be below the detection limit of the test. 03/24/18 15:08 Urine - Clean Catch Urine Legionella Antigen - Final Presumptive negative for Legionella pneumophila serogroup 1 antigen in urine, suggesting no recent or recurrent infection. Infection due to Legionella cannot be ruled out since other serogroups and species may cause disease, antigen may not be present in urine in early infection, and the level of antigen present in the urine may be below the detection limit of the test. 03/24/18 15:45 Nasal Wash Influenza Types A,B Antigen - Final Negative for FLU A and B antigen Infection due to influenza A or B cannot be ruled out since the antigen present in the sample may be below the detection limit of the test. - Imaging Impressions Thoracic Aorta CT 03/24/18 00:00 CONCLUSION: 1. The thoracoabdominal aorta is normal throughout. No aneurysmal disease or dissection. 2. There are bilateral nodular densities in the upper lobes, most prominent on the left with some central cavitation. Findings are concerning for possible septic emboli. Pleural parenchymal densities in the right hemithorax may represent more of the same. 3. Hepatic fatty infiltration. Chest X-Ray 03/25/18 00:00 CONCLUSION: No acute cardiopulmonary process. Assessment and Plan - Assessment (1) Pleuritic chest pain Code(s): R07.81 - Pleurodynia Status: Acute (2) Pulmonary cavitary lesion Code(s): J98.4 - Other disorders of lung Status: Acute - Plan 27-year-old female with history of a small spontaneous pneumothorax 1 year ago presented with pleuritic chest pain and was found to have partial pulmonary cavitary lesions concerning for septic emboli versus bronchopneumonia -CTA thoracic aorta with no aneurysm or dissection. - Continue empiric treatment with Vancomycin and Aztreonam. - ID and pulmonary consults appreciated. - Monitor for signs of sepsis. - Incentive spirometry. - Pain control with Tylenol and [place] for breakthrough pain. -urine toxicology negative. - Follow up blood cultures. Discharge Planning: home- pending w/u and clinical course.
--- NOTE | 2018-03-25 15:41 | P.PNPL ---
Subjective Interval history: Patient states she is breathing easier, afebrile. CT thorax showed the thoracoabdominal aorta is normal throughout. No aneurysmal disease or dissection. There are bilateral nodular densities in the upper lobes, most prominent on the left with some central cavitation. Physical Exam Vital signs: Vital Signs 03/24/18 16:00 03/24/18 21:16 03/24/18 21:20 Temperature 96.8 F L 97.1 F L Pulse Rate 76 79 Respiratory Rate 16 16 16 Blood Pressure 110/68 119/74 Pulse Oximetry 98 100 03/24/18 21:48 03/25/18 00:00 03/25/18 01:15 Temperature 97.0 F L Pulse Rate 68 74 Respiratory Rate 16 16 16 Blood Pressure 110/56 L Pulse Oximetry 98 03/25/18 04:25 03/25/18 04:53 03/25/18 08:00 Temperature 98.6 F Pulse Rate 66 80 Respiratory Rate 16 16 21 Blood Pressure 119/76 Pulse Oximetry 99 03/25/18 10:09 03/25/18 12:00 03/25/18 14:20 Temperature 98.4 F Pulse Rate 83 86 93 H Respiratory Rate 16 20 18 Blood Pressure 114/66 Pulse Oximetry 100 Intake & Output 03/24/18 03/25/18 03/25/18 18:59 06:59 18:59 Intake Total 830 / 830 2110 / 2110 580 / 580 Output Total 200 / 200 Balance 830 / 830 2110 / 2110 380 / 380 Weight 52.1 kg Intake: IV 350 / 350 1150 / 1150 100 / 100 NS Inj 1,000 ML @ 84 mls/hr IV. 800 / 800 CONT .[id number] PEDRO Rx#: [id number] Azactam Inj 1,000 MG In NS Inj 100 / 100 100 / 100 100 / 100 100 ML @ 200 mls/hr IV.SIG Q8H PEDRO Rx#:[id number] Vancomycin Inj 1,000 MG In NS 250 / 250 250 / 250 Inj 250 ML @ 200 mls/hr IV.SIG Q12H PEDRO Rx#:[id number] Oral 480 / 480 960 / 960 480 / 480 Output: Urine 200 / 200 Other: # Voids 2 3 - Constitutional no acute distress - Routine HEENT Exam Head: Present: normocephalic, atraumatic Eye: Present: EOMI, PERRL, normal accommodation ENT: Present: mucous membranes moist - Routine Neck Exam Present: supple, full ROM, trachea midline - Routine Respiratory Exam Present: CTA bilaterally - Routine Cardiovascular Exam Present: RRR, S1, S2 - Routine Abdominal Exam Present: soft, normoactive bowel sounds - Routine Extremities Exam Present: full ROM, pulses intact - Routine Skin Exam Present: intact, dry - Routine Neurological Exam Present: alert, oriented X3, CN II-XII intact Assessment and Plan - Plan 1. Multiple patchy densities in upper lungs with partial cavitation. ddx bronchopneumonia versus septic emboli. 2. Atypical chest pain..improving 3. Dyspnea. 4. History of right-sided spontaneous pneumothorax one 1 ago. 5. Active tobacco use. 6. History of anxiety disorder. Plan Oxygen p.r.n. to maintain saturations above 92%. Bronchodilators Continue abx (Vanco, Aztreonam) ID is following Strep pneumoniae, legionella urinary antigen and influenza screening all negative. Mycoplasma titers pending CT thorax showed the thoracoabdominal aorta is normal throughout. No aneurysmal disease or dissection. There are bilateral nodular densities in the upper lobes , most prominent on the left with some central cavitation. Will proceed with bronch and BAL Check 2D echo r/o vegetations Pain control with morphine. GI and DVT prophylaxis per primary team. Discussed with Dr. Posada
[2018-03-25] MEDS ORDERED: Dextrose 5%/NaCl 0.45% Inj 1,000 ML IV.CONT SCH (16:00)
--- NOTE | 2018-03-25 16:29 | P.PNID ---
Subjective Remarks: Patient reports that she feels better but still has pain in the chest. The patient patient describes the pain is constant. Has difficulty taking deep inspiration. Denies cough or sputum production. Denies chills. Afebrile. White blood cell count normal. Blood cultures no growth. This is a 27-year-old white female who developed sudden onset of chest pain and presented to the emergency department for evaluation. The patient reports to me that she was at work and someone gave a joke and she laughed very vigorously and suddenly developed chest pain. She Developed chest pain overnight and the following day came to the emergency department for evaluation. She has a history of spontaneous pneumothorax one year ago. Antibiotics: Vancomycin. Aztreonam. Past Medical History: PAST MEDICAL HISTORY: Irritable bowel syndrome, history of spontaneous pneumothorax in 04/2017, delivery, panic attacks. Allergies/Adverse Reactions: Allergies ciprofloxacin [From Cipro] Allergy (Verified 03/24/18 13:07) Rash Penicillins Allergy (Verified 03/23/18 21:17) Rash Sulfa (Sulfonamide Antibiotics) Allergy (Verified 03/23/18 21:17) Edema Objective Vital Signs 03/24/18 21:16 03/24/18 21:20 03/24/18 21:48 Temperature 97.1 F L Pulse Rate 79 68 Respiratory Rate 16 16 16 Blood Pressure 119/74 Pulse Oximetry 100 03/25/18 00:00 03/25/18 01:15 03/25/18 04:25 Temperature 97.0 F L Pulse Rate 74 66 Respiratory Rate 16 16 16 Blood Pressure 110/56 L Pulse Oximetry 98 03/25/18 04:53 03/25/18 08:00 03/25/18 10:09 Temperature 98.6 F Pulse Rate 80 83 Respiratory Rate 16 21 16 Blood Pressure 119/76 Pulse Oximetry 99 03/25/18 12:00 03/25/18 14:20 Temperature 98.4 F Pulse Rate 86 93 H Respiratory Rate 20 18 Blood Pressure 114/66 Pulse Oximetry 100 Intake & Output 03/24/18 03/25/18 03/25/18 18:59 06:59 18:59 Intake Total 830 / 830 2110 / 2110 580 / 580 Output Total 200 / 200 Balance 830 / 830 2110 / 2110 380 / 380 Weight 52.1 kg Intake: IV 350 / 350 1150 / 1150 100 / 100 NS Inj 1,000 ML @ 84 mls/hr IV. 800 / 800 CONT .[id number] PEDRO Rx#: [id number] Azactam Inj 1,000 MG In NS Inj 100 / 100 100 / 100 100 / 100 100 ML @ 200 mls/hr IV.SIG Q8H PEDRO Rx#:[id number] Vancomycin Inj 1,000 MG In NS 250 / 250 250 / 250 Inj 250 ML @ 200 mls/hr IV.SIG Q12H PEDRO Rx#:[id number] Oral 480 / 480 960 / 960 480 / 480 Output: Urine 200 / 200 Other: # Voids 2 3 03/24/18 01:25 Blood - Peripheral Aerobic Blood Culture - Preliminary No growth in 1 day 03/24/18 01:25 Blood - Peripheral Anaerobic Blood Culture - Preliminary No growth in 1 day 03/24/18 01:30 Blood - Peripheral Aerobic Blood Culture - Preliminary No growth in 1 day 03/24/18 01:30 Blood - Peripheral Anaerobic Blood Culture - Preliminary No growth in 1 day 03/24/18 15:08 Urine - Clean Catch Urine Streptococcus pneumoniae Antigen ( M - Final Presumptive negative for streptococcus pneumoniae antigen, suggesting no current or recent infection. Infection due to Streptococcus pneumoniae cannot be ruled out since the antigen present in the sample may be below the detection limit of the test. 03/24/18 15:08 Urine - Clean Catch Urine Legionella Antigen - Final Presumptive negative for Legionella pneumophila serogroup 1 antigen in urine, suggesting no recent or recurrent infection. Infection due to Legionella cannot be ruled out since other serogroups and species may cause disease, antigen may not be present in urine in early infection, and the level of antigen present in the urine may be below the detection limit of the test. 03/24/18 15:45 Nasal Wash Influenza Types A,B Antigen - Final Negative for FLU A and B antigen Infection due to influenza A or B cannot be ruled out since the antigen present in the sample may be below the detection limit of the test. Lab - Hematology Results 03/23/18 03/25/18 23:20 06:02 CBC w Diff Auto diff final WBC 10.0 5.3 RBC 5.32 H 4.45 Hgb 15.3 12.3 D Hct 45.2 38.3 MCV 85.0 86.2 MCH 28.8 27.6 MCHC 33.9 32.0 RDW 13.8 13.1 Plt Count 212 160 MPV 8.1 8.1 Neut % (Auto) 57.8 58.0 Lymph % (Auto) 32.3 32.4 [place] % (Auto) 7.6 5.7 Eos % (Auto) 1.8 1.7 Baso % (Auto) 0.5 2.2 H Neut # (Auto) 5.8 3.1 Lymph # (Auto) 3.2 1.7 [place] # (Auto) 0.8 0.3 Eos # (Auto) 0.2 0.1 Baso # (Auto) 0.0 0.1 WBC Differential . . Differential Comment Auto diff final . Lab - Chemistry Results 03/23/18 03/25/18 23:20 06:02 Sodium 138 145 Potassium 3.7 3.4 L Chloride 105 112 H Carbon Dioxide 25.7 24.3 Anion Gap 7 9 BUN 12 6 L Creatinine 0.69 0.57 Estimated GFR Greater than 89 Greater than 89 Random Glucose 88 89 Calcium 8.9 7.5 L D Total Bilirubin 0.3 AST 10 L ALT 22 Alkaline Phosphatase 61 Total Creatine Kinase 65 Troponin I Less than 0.02 L Total Protein 7.6 Albumin 4.0 Imaging: ITS Impressions Chest CT 03/24/18 00:00 CONCLUSION: Multiple small focal patchy densities seen in the upper lungs with at least 2 of these been partially cavitary. This raises the possibility of septic emboli versus bronchopneumonia. Thoracic Aorta CT 03/24/18 00:00 CONCLUSION: 1. The thoracoabdominal aorta is normal throughout. No aneurysmal disease or dissection. 2. There are bilateral nodular densities in the upper lobes, most prominent on the left with some central cavitation. Findings are concerning for possible septic emboli. Pleural parenchymal densities in the right hemithorax may represent more of the same. 3. Hepatic fatty infiltration. Chest X-Ray 03/25/18 00:00 CONCLUSION: No acute cardiopulmonary process. Physical Exam: GENERAL: Well-developed female in no acute distress. HEENT: Pupils reactive to light. Extraocular movements intact. No icterus. Oropharynx moist mucosa. No thrush. NECK: Supple without adenopathy. No swelling. LUNGS: Clear to auscultation. CHEST: No tenderness on palpation of the anterior chest. HEART: Regular rate and rhythm. No murmurs. No rubs. No gallops. ABDOMEN: Bowel sounds present, soft, no tenderness appreciated. EXTREMITIES: No clubbing cyanosis or edema. No calf tenderness on palpation. SKIN: No rash. NEUROLOGIC: Nonfocal. PSYCH: Calm and cooperative. Assessment and Plan - Plan IMPRESSION: Acute onset of chest pain in patient with an abnormal CT scan showing lung infiltrates, but no symptomatology suggesting pneumonia. D-dimer was negative, indicating that she does not have pulmonary embolism. Not pneumothorax not seen on CT scan evaluation. It is unclear to me whether the patient has infection. This looks less likely in the absence of fever or leukocytosis if the blood cultures are negative. RECOMMENDATIONS: 1. Continue vancomycin. 2. Continue aztreonam. 3. Follow the blood cultures.
[2018-03-26] MEDS ORDERED: Pharmacy Ordered Lab Info OTHER ONE ×2 (02:45→14:45)
[2018-03-26] MEDS: Morphine Inj 4 MG/ML Vial IV.PUSH PRN ×4 (03:49→15:20)
[2018-03-26] MEDS: Vancomycin Inj 1,000 MG in Sodium Chlor 0.9% Inj 250 ML IV.SIG SCH (03:50)
[2018-03-26 04:17] LABS: Baso % (Auto) 0.3 % (0.0-2.0); Eos # (Auto) 0.1 th/mm3 (0.0-0.4); Eos % (Auto) 1.2 % (0.0-4.0); Hematocrit 40.8 % (35.0-46.0); Hemoglobin 13.8 gm/dL (11.6-15.3); Lymph # (Auto) 1.7 th/mm3 (1.0-4.8); Lymph % (Auto) 29.5 % (9.0-44.0); Mean Corpuscular HGB Conc 33.8 % (32.0-36.0); Mean Corpuscular Hemoglobin 28.7 pg (27.0-34.0); Mean Platelet Volume 8.1 fL (7.0-11.0); Mono # (Auto) 0.4 th/mm3 (0.0-0.9); Mono % (Auto) 6.3 % (0.0-8.0); Neut # (Auto) 3.6 th/mm3 (1.8-7.7); Neut % (Auto) 62.7 % (16.0-70.0); Platelet Count 168 th/mm3 (150-450); Red Blood Count 4.79 mil/mm3 (4.00-5.30); Red Cell Distribution Width 13.7 % (11.6-17.2); White Blood Count 5.7 th/mm3 (4.0-11.0)
[2018-03-26 04:31] LABS: INR 1.1 Ratio; Prothrombin Time 10.8 sec (9.8-11.6)
[2018-03-26 04:37] LABS: Anion Gap 5 meq/L (5-15); Blood Urea Nitrogen 6 mg/dL (7-18); Calcium 9.2 mg/dL (8.5-10.1); Chloride 105 meq/L (98-107); Glomerular Filtration Rate Greater Than 89 mL/min (>89); Glucose,Random 84 mg/dL (74-106); Magnesium 1.9 mg/dL (1.5-2.5); Potassium 4.1 meq/L (3.5-5.1); Sodium 140 meq/L (136-145)
[2018-03-26] MEDS ORDERED: Chlorhexidine Gluconate 2% 1 Pack (2 Cloths) TOPICAL ONE (05:37)
[2018-03-26] MEDS ORDERED: Metoprolol Tartrate 25 MG Tablet PO ONE (05:37)
[2018-03-26] MEDS ORDERED: Sodium Chlor 0.9% Inj 500 ML IV.SIG SCH (06:00)
[2018-03-26] MEDS: Senna/Docusate Sodium 8.6/50 MG Tablet PO SCH (09:00)
[2018-03-26] MEDS ORDERED: Lidocaine PF 1% Inj 5 ML Syringe OTHER ONE (09:33)
--- NOTE | 2018-03-26 10:24 | P.PNPL ---
Subjective Interval history: No events overnight. s/p bronch this morning. Afebrile. Physical Exam Vital signs: Vital Signs 03/25/18 12:00 03/25/18 14:20 03/25/18 16:00 Temperature 98.4 F 98.7 F Pulse Rate 86 93 H 87 Respiratory Rate 20 18 21 Blood Pressure 114/66 122/63 Pulse Oximetry 100 100 03/25/18 20:00 03/25/18 21:53 03/26/18 00:00 Temperature 96.5 F L 97.7 F Pulse Rate 83 73 74 Respiratory Rate 20 20 20 Blood Pressure 116/69 110/59 L Pulse Oximetry 96 98 03/26/18 03:15 03/26/18 04:00 03/26/18 08:00 Temperature 98.1 F 98.3 F Pulse Rate 75 89 70 Respiratory Rate 18 20 16 Blood Pressure 107/58 L 129/61 Pulse Oximetry 99 99 Intake & Output 03/25/18 03/26/18 03/26/18 18:59 06:59 18:59 Intake Total 2170 / 2170 350 / 350 Output Total 1400 / 1400 Balance 770 / 770 350 / 350 Weight 53.1 kg Intake: IV 1450 / 1450 350 / 350 NS Inj 1,000 ML @ 84 mls/hr IV. 1000 / 1000 CONT .[id number] PEDRO Rx#: [id number] Azactam Inj 1,000 MG In NS Inj 200 / 200 100 / 100 100 ML @ 200 mls/hr IV.SIG Q8H PEDRO Rx#:[id number] Vancomycin Inj 1,000 MG In NS 250 / 250 250 / 250 Inj 250 ML @ 200 mls/hr IV.SIG Q12H PEDRO Rx#:[id number] Oral 720 / 720 0 / 0 Output: Urine 1400 / 1400 Stool 0 / 0 Other: # Voids 3 3 Date of Last Bowel Movement 03/25/18 03/24/18 Weight On Admission 52.1 kg - Constitutional no acute distress - Routine HEENT Exam Head: Present: normocephalic, atraumatic Eye: Present: EOMI, PERRL, normal accommodation, conjunctivae pink ENT: Present: mucous membranes moist - Routine Neck Exam Present: supple, full ROM, trachea midline - Routine Respiratory Exam Present: CTA bilaterally - Routine Cardiovascular Exam Present: RRR, S1, S2 - Routine Abdominal Exam Present: soft, normoactive bowel sounds - Routine Extremities Exam Present: pulses intact - Routine Skin Exam Present: intact, dry - Routine Neurological Exam Present: alert, oriented X3, CN II-XII intact Assessment and Plan - Plan 1. Multiple patchy densities in upper lungs with partial cavitation. ddx bronchopneumonia versus septic emboli. 2. Atypical chest pain..improving 3. Dyspnea. 4. History of right-sided spontaneous pneumothorax one 1 ago. 5. Active tobacco use. 6. History of anxiety disorder. Plan Oxygen p.r.n. to maintain saturations above 92%. Bronchodilators Continue abx (Vanco, Aztreonam) ID is following Strep pneumoniae, legionella urinary antigen and influenza screening all negative. Mycoplasma titers pending CT thorax showed the thoracoabdominal aorta is normal throughout. No aneurysmal disease or dissection. There are bilateral nodular densities in the upper lobes , most prominent on the left with some central cavitation. s/p bronch this morning showed minimal seecrestions b/l suctioned to clear, BAL performed JOAN, no evidence of EBL or bleeding. Follow up on BAL results. Echo showed EF 55-60%, Pain control with morphine. GI and DVT prophylaxis per primary team.
[2018-03-26] MEDS ORDERED: *morphine SULFATE 4 MG/ML PERIprocedure ONLY ONE (10:40)
[2018-03-26] MEDS ORDERED: *Ondansetron Inj 4 MG/2 ML Vial PERIprocedural Use ONLY ONE (10:44)
--- NOTE | 2018-03-26 11:09 | XR ---
EXAM DATE: 03/26/2018 11:05 AM EDT AGE/SEX: 27 years / Female INDICATIONS: Post-op bronchoscopy. CLINICAL DATA: This is the patient's initial encounter. Patient reports that signs and symptoms have been present for 1 day and indicates a pain score of 6/10. MEDICAL/SURGICAL HISTORY: Irritable bowel syndrome. Collapsed right lung. section. Co lonoscopy, Root canal. COMPARISON: [facility], CTA THOR ABD AORTA W CONTRAST W 3D, 03/24/2018. . FINDINGS: There are faint nodular opacities in the upper lungs with some subsegmental consolidation in the righ t upper lobe which is a new findings to prior exam. No effusion. No pneumothorax. CONCLUSION: No pneumothorax status post bronchoscopy. Electronically signed by: Aba Mehta MD 03/26/2018 11:08 AM EDT
--- NOTE | 2018-03-26 11:49 | P.PNID ---
Subjective Remarks: Patient reports that she feels better but still has pain in the chest. Underwent bronchoscopy this morning. Results pending. Reports that she developed sudden pain in the right lower abdomen near the groin. Ports that the chest pain is now across the chest and not on the right side only and overall is decreased. Denies cough or sputum production. Denies chills. Afebrile. White blood cell count normal. Blood cultures no growth. This is a 27-year-old white female who developed sudden onset of chest pain and presented to the emergency department for evaluation. The patient reports to me that she was at work and someone gave a joke and she laughed very vigorously and suddenly developed chest pain. She Developed chest pain overnight and the following day came to the emergency department for evaluation. She has a history of spontaneous pneumothorax one year ago. Antibiotics: Vancomycin. Aztreonam. Past Medical History: PAST MEDICAL HISTORY: Irritable bowel syndrome, history of spontaneous pneumothorax in 04/2017, delivery, panic attacks. Allergies/Adverse Reactions: Allergies ciprofloxacin [From Cipro] Allergy (Verified 03/24/18 13:07) Rash Penicillins Allergy (Verified 03/23/18 21:17) Rash Sulfa (Sulfonamide Antibiotics) Allergy (Verified 03/23/18 21:17) Edema Objective Vital Signs 03/25/18 12:00 03/25/18 14:20 03/25/18 16:00 Temperature 98.4 F 98.7 F Pulse Rate 86 93 H 87 Respiratory Rate 20 18 21 Blood Pressure 114/66 122/63 Pulse Oximetry 100 100 03/25/18 20:00 03/25/18 21:53 03/26/18 00:00 Temperature 96.5 F L 97.7 F Pulse Rate 83 73 74 Respiratory Rate 20 20 20 Blood Pressure 116/69 110/59 L Pulse Oximetry 96 98 03/26/18 03:15 03/26/18 04:00 03/26/18 08:00 Temperature 98.1 F 98.3 F Pulse Rate 75 89 70 Respiratory Rate 18 20 16 Blood Pressure 107/58 L 129/61 Pulse Oximetry 99 99 03/26/18 10:04 03/26/18 10:15 03/26/18 10:30 Temperature 98.1 F Pulse Rate 80 88 86 Respiratory Rate 16 16 16 Blood Pressure 102/58 L 110/57 L 115/65 Pulse Oximetry 100 100 100 03/26/18 10:45 03/26/18 11:00 Temperature Pulse Rate 82 80 Respiratory Rate 16 16 Blood Pressure 107/61 109/55 L Pulse Oximetry 96 96 Intake & Output 03/25/18 03/26/18 03/26/18 18:59 06:59 18:59 Intake Total 2170 / 2170 350 / 350 300 / 300 Output Total 1400 / 1400 Balance 770 / 770 350 / 350 300 / 300 Weight 53.1 kg Intake: IV 1450 / 1450 350 / 350 NS Inj 1,000 ML @ 84 mls/hr IV. 1000 / 1000 CONT .[id number] PEDRO Rx#: [id number] Azactam Inj 1,000 MG In NS Inj 200 / 200 100 / 100 100 ML @ 200 mls/hr IV.SIG Q8H PEDRO Rx#:[id number] Vancomycin Inj 1,000 MG In NS 250 / 250 250 / 250 Inj 250 ML @ 200 mls/hr IV.SIG Q12H PEDRO Rx#:[id number] Oral 720 / 720 0 / 0 Other 300 / 300 Output: Urine 1400 / 1400 Stool 0 / 0 Other: Other Intake Source Saline Solution # Voids 3 3 Date of Last Bowel Movement 03/25/18 03/24/18 Weight On Admission 52.1 kg 03/24/18 01:25 Blood - Peripheral Aerobic Blood Culture - Preliminary No growth in 2 days 03/24/18 01:25 Blood - Peripheral Anaerobic Blood Culture - Preliminary No growth in 2 days 03/24/18 01:30 Blood - Peripheral Aerobic Blood Culture - Preliminary No growth in 2 days 03/24/18 01:30 Blood - Peripheral Anaerobic Blood Culture - Preliminary No growth in 2 days 03/26/18 09:50 Bronchial Washings - Left Upper Lobe Fungal Smear - Pending 03/26/18 09:50 Bronchial Washings - Left Upper Lobe Fungal Culture - Pending 03/26/18 09:50 Bronchial - Left Upper Lobe Gram Stain - Pending 03/26/18 09:50 Bronchial - Left Upper Lobe Bronchial Culture - Pending 03/26/18 09:50 Bronchial Washings - Left Upper Lobe Acid Fast Bacilli Smear - Pending 03/26/18 09:50 Bronchial Washings - Left Upper Lobe Mycobacterial Culture - Pending 03/24/18 15:08 Urine - Clean Catch Urine Streptococcus pneumoniae Antigen ( M - Final Presumptive negative for streptococcus pneumoniae antigen, suggesting no current or recent infection. Infection due to Streptococcus pneumoniae cannot be ruled out since the antigen present in the sample may be below the detection limit of the test. 03/24/18 15:08 Urine - Clean Catch Urine Legionella Antigen - Final Presumptive negative for Legionella pneumophila serogroup 1 antigen in urine, suggesting no recent or recurrent infection. Infection due to Legionella cannot be ruled out since other serogroups and species may cause disease, antigen may not be present in urine in early infection, and the level of antigen present in the urine may be below the detection limit of the test. 03/24/18 15:45 Nasal Wash Influenza Types A,B Antigen - Final Negative for FLU A and B antigen Infection due to influenza A or B cannot be ruled out since the antigen present in the sample may be below the detection limit of the test. Lab - Hematology Results 03/25/18 03/26/18 06:02 03:26 CBC w Diff Auto diff final WBC 5.3 5.7 RBC 4.45 4.79 Hgb 12.3 D 13.8 Hct 38.3 40.8 MCV 86.2 85.0 MCH 27.6 28.7 MCHC 32.0 33.8 RDW 13.1 13.7 Plt Count 160 168 MPV 8.1 8.1 Neut % (Auto) 58.0 62.7 Lymph % (Auto) 32.4 29.5 [place] % (Auto) 5.7 6.3 Eos % (Auto) 1.7 1.2 Baso % (Auto) 2.2 H 0.3 Neut # (Auto) 3.1 3.6 Lymph # (Auto) 1.7 1.7 [place] # (Auto) 0.3 0.4 Eos # (Auto) 0.1 0.1 Baso # (Auto) 0.1 0.0 WBC Differential . . Differential Comment . Auto diff final Lab - Chemistry Results 03/25/18 03/26/18 06:02 03:26 Sodium 145 140 Potassium 3.4 L 4.1 Chloride 112 H 105 Carbon Dioxide 24.3 30.0 Anion Gap 9 5 BUN 6 L 6 L Creatinine 0.57 0.53 Estimated GFR Greater than 89 Greater than 89 Random Glucose 89 84 Calcium 7.5 L D 9.2 D Magnesium 1.9 Imaging: ITS Impressions Chest CT 03/24/18 00:00 CONCLUSION: Multiple small focal patchy densities seen in the upper lungs with at least 2 of these been partially cavitary. This raises the possibility of septic emboli versus bronchopneumonia. Thoracic Aorta CT 03/24/18 00:00 CONCLUSION: 1. The thoracoabdominal aorta is normal throughout. No aneurysmal disease or dissection. 2. There are bilateral nodular densities in the upper lobes, most prominent on the left with some central cavitation. Findings are concerning for possible septic emboli. Pleural parenchymal densities in the right hemithorax may represent more of the same. 3. Hepatic fatty infiltration. Chest X-Ray 03/26/18 10:22 CONCLUSION: No pneumothorax status post bronchoscopy. Physical Exam: GENERAL: Well-developed female in no acute distress. HEENT: Pupils reactive to light. Extraocular movements intact. No icterus. Oropharynx moist mucosa. No thrush. NECK: Supple without adenopathy. No swelling. LUNGS: Clear to auscultation. Breath sounds are decreased. CHEST: No tenderness on palpation of the anterior chest. HEART: Regular rate and rhythm. No murmurs. No rubs. No gallops. ABDOMEN: Bowel sounds present, soft, minimal tenderness at the right lower quadrant. EXTREMITIES: No clubbing cyanosis or edema. No calf tenderness on palpation. SKIN: No rash. NEUROLOGIC: Nonfocal. PSYCH: Calm and cooperative. Assessment and Plan - Plan IMPRESSION: Acute onset of chest pain in patient with an abnormal CT scan showing lung infiltrates, but no symptomatology suggesting pneumonia. D-dimer was negative, indicating that she does not have pulmonary embolism. Not pneumothorax not seen on CT scan evaluation. It is unclear to me whether the patient has infection. This looks less likely in the absence of fever or leukocytosis if the blood cultures are negative. RECOMMENDATIONS: 1. Monitor bronchoscopy culture. 2. Continue vancomycin. 3. Continue aztreonam. 4. Follow the blood cultures.
[2018-03-26 12:12] VITALS: TEMP 98.3; O2SAT 99
[2018-03-26 16:06] VITALS: PULSE 72; RESP 18
--- NOTE | 2018-03-26 16:36 | US ---
EXAM DATE: 03/26/2018 4:31 PM EDT AGE/SEX: 27 years / Female INDICATIONS: Pelvic pain. CLINICAL DATA: This is the patient's initial encounter. Patient reports that signs and symptoms have been present for 1 day and indicates a pain score of 6/10. MEDICAL/SURGICAL HISTORY: . IBS. Collapsed lung. Panic attack. section. COMPARISON: No prior exams available for comparison. MEASUREMENTS: Uterus:__9.0 x 6.3 x 3.4 cm Endometrial Stripe:__7 mm Right Ovary:__ 2.3 x 2.7 x 2.0 cm Left Ovary:__ 3.6 x 3.7 x 2.2 cm FINDINGS: Uterus: The myometrium has homogeneous echotexture without mass. Small cysts in the lower uterine se gment. Endometrial Stripe: The endometrial stripe displays homogeneous echotexture. Right Ovary: Ovary contains no mass. Follicles are present. Left Ovary: 3 cm cyst. Positive blood flow to both ovaries. Fluid: No free fluid. Other: None. CONCLUSION: 1. Positive blood flow to the ovaries. 3 cm left ovarian cyst. Small cysts in the lower uterine segm ent. No free fluid. Electronically signed by: Aba Mehta MD 03/26/2018 4:35 PM EDT
[2018-03-26 16:37] VITALS: BP 112/65
--- NOTE | 2018-03-26 17:01 | P.DS ---
Date of admission: 03/24/18 01:25 Primary care physician: No Primary Care Physician Brief History from admission: 27-year-old female who reports a history of a small spontaneous pneumothorax a year ago presented to the hospital with complaint of pleuritic type chest pain. The pain has been present for the past couple of days and seems to have gotten worse with deep breathing. She denies cough, fever, or sick contact. She reports difficulty breathing at times due to the pain. She reports her symptoms has been intermittent. She is an every day smoker. She denies illicit drug use, specifically IV drug use. Chest CT in the emergency room is read as "multiple small focal patchy densities seen in the upper lungs with at least 2 of these been partially cavitary. This raises the possibility of septic emboli versus bronchopneumonia". The patient will be admitted for further workup and treatment. DS: Medications - Discharge Medications Prescriptions: oxycodone-acetaminophen [Percocet] 1 tab PO Q6H PRN #12 tab PRN Reason: Pain DS: Summary Hospital Course: Ms. Field is a pleasant 27-year-old female with a history of spontaneous pneumothorax a year ago who presented to the emergency department on 03/24/2018 due to pleuritic chest pain. She did not have any cough fever or sick contacts. She does not have any history of IV drug abuse. She did not have any travel outside the country. She recently moved to [place] from [place]. CT scan of her chest showed multiple small focal patchy densities including 2 partially cavitary lesions. Strep pneumoniae, legionella urinary antigen and influenza screening all negative. Echo showed EF 55-60% and no vegetation. s/p bronch this morning showed minimal seecrestions b/l suctioned to clear, BAL performed JOAN, no evidence of EBL or bleeding. Patient clinically remains stable. No leukocytosis, fever. On the day of discharge, patient complained of right lower quadrant abdominal/pelvic area pain. We subsequently obtained a pelvic ultrasound which showed left-sided 3 cm ovarian cyst. Positive blood flow to the ovaries. No free fluid. I discussed at length with patient regarding follow-up CT chest without contrast in 2 weeks and follow-up with hole digger truck driver. Patient does have insurance and will follow up with a hole digger truck driver after CT chest. I also encouraged patient to follow-up with an [employer] physician. Patient remains hemodynamically stable. She wants to go home. I discussed with infectious disease attending who recommended no antibiotics. Subsequently, patient is discharged home with outpatient follow- up with pulmonology, [employer]. - Time Spent with Patient Total time spent providing and/or coordinating discharge services: Less than 30 minutes - Quality: VTE Deep Vein Thrombosis/Pulmonary Embolism Present on Admission: No Exam Vital signs: Vital Signs 03/25/18 20:00 03/25/18 21:53 03/26/18 00:00 Temperature 96.5 F L 97.7 F Pulse Rate 83 73 74 Respiratory Rate 20 20 20 Blood Pressure 116/69 110/59 L Pulse Oximetry 96 98 03/26/18 03:15 03/26/18 04:00 03/26/18 08:00 Temperature 98.1 F 98.3 F Pulse Rate 75 89 70 Respiratory Rate 18 20 16 Blood Pressure 107/58 L 129/61 Pulse Oximetry 99 99 03/26/18 10:04 03/26/18 10:15 03/26/18 10:30 Temperature 98.1 F Pulse Rate 80 88 86 Respiratory Rate 16 16 16 Blood Pressure 102/58 L 110/57 L 115/65 Pulse Oximetry 100 100 100 03/26/18 10:45 03/26/18 11:00 03/26/18 12:00 Temperature 98.3 F Pulse Rate 82 80 74 Respiratory Rate 16 16 16 Blood Pressure 107/61 109/55 L 110/57 L Pulse Oximetry 96 96 99 03/26/18 16:00 03/26/18 16:05 Temperature 98.3 F Pulse Rate 69 72 Respiratory Rate 16 18 Blood Pressure 112/65 Pulse Oximetry 99 Intake & Output 03/25/18 03/26/18 03/26/18 18:59 06:59 18:59 Intake Total 2170 / 2170 350 / 350 300 / 300 Output Total 1400 / 1400 Balance 770 / 770 350 / 350 300 / 300 Weight 53.1 kg Intake: IV 1450 / 1450 350 / 350 NS Inj 1,000 ML @ 84 mls/hr IV. 1000 / 1000 CONT .[id number] PEDRO Rx#: [id number] Azactam Inj 1,000 MG In NS Inj 200 / 200 100 / 100 100 ML @ 200 mls/hr IV.SIG Q8H PEDRO Rx#:[id number] Vancomycin Inj 1,000 MG In NS 250 / 250 250 / 250 Inj 250 ML @ 200 mls/hr IV.SIG Q12H PEDRO Rx#:[id number] Oral 720 / 720 0 / 0 Other 300 / 300 Output: Urine 1400 / 1400 Stool 0 / 0 Other: Other Intake Source Saline Solution # Voids 3 3 Date of Last Bowel Movement 03/25/18 03/24/18 Weight On Admission 52.1 kg Narrative: GENERAL: Alert, oriented x3, NAD. SKIN: Warm and dry. HEAD: Normocephalic. EYES: No scleral icterus. No injection or drainage. NECK: Supple, trachea midline. No JVD or lymphadenopathy. CARDIOVASCULAR: Regular rate and rhythm without murmurs, gallops, or rubs. RESPIRATORY: Breath sounds equal bilaterally. No accessory muscle use. GASTROINTESTINAL: Abdomen soft, tender to palpation over the right lower quadrant, nondistended. MUSCULOSKELETAL: No cyanosis, or edema. BACK: Nontender without obvious deformity. No CVA tenderness. Results Procedures completed during hospitalization: Echo 03/24/2018 The left ventricular systolic function is normal with an estimated ejection fraction in the range of 55-60%. Left ventricular diastolic function parameters are normal. Trace mitral valve regurgitation. There is trace tricuspid valve regurgitation. 03/26/2018 Bronchoscopy Labs on day of discharge: Labs from last 24 hours 03/26/18 03/26/18 03/26/18 03:26 03:26 03:26 WBC 5.7 RBC 4.79 Hgb 13.8 Hct 40.8 MCV 85.0 MCH 28.7 MCHC 33.8 RDW 13.7 Plt Count 168 MPV 8.1 Neut % (Auto) 62.7 Lymph % (Auto) 29.5 [place] % (Auto) 6.3 Eos % (Auto) 1.2 Baso % (Auto) 0.3 Neut # (Auto) 3.6 Lymph # (Auto) 1.7 [place] # (Auto) 0.4 Eos # (Auto) 0.1 Baso # (Auto) 0.0 WBC Differential . Differential Comment Auto diff final PT 10.8 INR 1.1 Sodium 140 Potassium 4.1 Chloride 105 Carbon Dioxide 30.0 Anion Gap 5 BUN 6 L Creatinine 0.53 Estimated GFR Greater than 89 Random Glucose 84 Calcium 9.2 D Magnesium 1.9 M. pneumoniae Interp Mycoplasma pneumon IgG Mycoplasma pneumon IgM 03/24/18 15:25 WBC RBC Hgb Hct MCV MCH MCHC RDW Plt Count MPV Neut % (Auto) Lymph % (Auto) [place] % (Auto) Eos % (Auto) Baso % (Auto) Neut # (Auto) Lymph # (Auto) [place] # (Auto) Eos # (Auto) Baso # (Auto) WBC Differential Differential Comment PT INR Sodium Potassium Chloride Carbon Dioxide Anion Gap BUN Creatinine Estimated GFR Random Glucose Calcium Magnesium M. pneumoniae Interp . Mycoplasma pneumon IgG Positive Mycoplasma pneumon IgM Negative Preliminary micro results at discharge 03/24/18 01:25 Aerobic Blood Culture - Preliminary Blood - Peripheral No growth in 2 days Anaerobic Blood Culture - Preliminary No growth in 2 days 03/24/18 01:30 Aerobic Blood Culture - Preliminary Blood - Peripheral No growth in 2 days Anaerobic Blood Culture - Preliminary No growth in 2 days - Impressions ITS Impressions Chest CT 03/24/18 00:00 CONCLUSION: Multiple small focal patchy densities seen in the upper lungs with at least 2 of these been partially cavitary. This raises the possibility of septic emboli versus bronchopneumonia. Thoracic Aorta CT 03/24/18 00:00 CONCLUSION: 1. The thoracoabdominal aorta is normal throughout. No aneurysmal disease or dissection. 2. There are bilateral nodular densities in the upper lobes, most prominent on the left with some central cavitation. Findings are concerning for possible septic emboli. Pleural parenchymal densities in the right hemithorax may represent more of the same. 3. Hepatic fatty infiltration. Abdomen/Pelvis/Transvag US 03/26/18 00:00 CONCLUSION: 1. Positive blood flow to the ovaries. 3 cm left ovarian cyst. Small cysts in the lower uterine segment. No free fluid. Chest X-Ray 03/26/18 10:22 CONCLUSION: No pneumothorax status post bronchoscopy. Discharge Plan - Discharge Disposition Patient Disposition: Discharge Home - Discharge Condition Condition: Stable - Discharge Order Discharge Orders: Discharge Order (Routine); Ordered 03/26/18 Ordered By: Irwin Jang - Discharge Details Anticipated Discharge Date: 03/26/18 Discharge Comment: Discharge after pelvic US is done. - Physicians Team Primary Care Provider: Primary Care Physici,Malou Attending Provider: Irwin Jang Other Providers: Kirt Solano MD ; Gabo Harp MD
== END 2018-03-26 18:05 | disposition home or self-care (01) ==
LOC: NEPE 21:04 → NEDA 03-24 01:25 → NEDH 03-24 05:28 → PH3 03-24 10:42 → N06 03-25 19:15
PROVIDERS: ADMIT Hospitalist; ATTEND Hospitalist

== ENCOUNTER 2018-04-09 13:32 | Inpatient (IN) ==
[2018-04-09] MEDS ORDERED: Ketorolac Inj 30 MG/ML (IVP) Vial IV.PUSH ONE (14:15)
--- NOTE | 2018-04-09 14:20 | ED ---
HPI General Chief complaint: Chest Pain Stated complaint: Chest Pain/Lung Complaint Time Seen by Provider: 04/09/18 13:54 History of Present Illness HPI narrative: This is a 27-year-old female who presents for evaluation of chest pain. Symptoms started 2 days ago. She describes it as a sharp generalized chest pain but worse around the sternal border. Symptoms are worse with deep inspiration. She endorses slight dyspnea. Denies cough, congestion, fevers, chills, nausea, vomiting, abdominal pain, lower extremity edema. The patient was admitted here in late March for evaluation of the same pain. She had a CT of the chest at that time which read as "multiple small focal patchy densities seen in the upper lungs with at least 2 of these being partially cavitary. This raises the possibility of septic emboli versus bronchopneumonia. " She underwent infectious disease workup with no evidence of infectious process. She had blood cultures, sputum cultures, bronchial washings which were all negative. She had a bronchoscopy by pulmonology. She was eventually discharged on no antibiotics. She was told to return if her pain returns. No history of IV drug use. No recent travel. No other complaints at this time. Related Data Home Medications Medication Instructions Recorded Confirmed buspirone 10 mg PO TID 04/09/18 04/09/18 fluoxetine [Prozac] 20 mg PO DAILY 04/09/18 04/09/18 Allergies Allergy/AdvReac Type Severity Reaction Status Date / Time ciprofloxacin [From Cipro] Allergy Rash Verified 04/09/18 13:43 Penicillins Allergy Rash Verified 04/09/18 13:43 Sulfa (Sulfonamide Allergy Edema Verified 04/09/18 13:43 Antibiotics) Review of Systems ROS: all other systems reviewed are negative [facility] Medical History Medical History delivery delivered (Acute) Septic embolism (Acute) Collapsed lung (Acute) IBS (irritable bowel syndrome) (Acute) Panic attack (Acute) Family History Family History Other Family history reviewed with no changes Social History Social History Substance History: No History of Abuse Second Hand Smoke Exposure: Yes Smoking Status: Current every day smoker Tobacco Type: Cigarettes How Often Do You Have a Drink Containing Alcohol: Monthly or less Recent Travel in [place] within the Last 8 Weeks: No Recent Out of Country Travel within the Last 8 Weeks: No Immunization History Tetanus Immunization: >5 Years Exam Narrative Exam Narrative: GENERAL: Pleasant well-developed well-nourished female no acute distress SKIN: Warm and dry. HEAD: Atraumatic. Normocephalic. EYES: Pupils equal and round. No scleral icterus. No injection or drainage. ENT: No nasal bleeding or discharge. Mucous membranes pink and moist. NECK: Trachea midline. No JVD. CARDIOVASCULAR: Regular rate and rhythm. No murmur appreciated. RESPIRATORY: No accessory muscle use. Clear to auscultation. Breath sounds equal bilaterally. GASTROINTESTINAL: Abdomen soft, non-tender, nondistended. Hepatic and splenic margins not palpable. MUSCULOSKELETAL: No obvious deformities. No clubbing. No cyanosis. No edema. There is some tenderness to palpation along the costochondral border. NEUROLOGICAL: Awake and alert. No obvious cranial nerve deficits. Motor grossly within normal limits. Normal speech. PSYCHIATRIC: Appropriate mood and affect; insight and judgment normal. Course Initial Documented Vital Signs Temperature 98.0 F 04/09/18 13:43 Pulse Rate 68 04/09/18 13:43 Respiratory Rate 16 04/09/18 13:43 Blood Pressure 123/60 04/09/18 13:43 Pulse Oximetry 99 04/09/18 13:43 Last Documented Vital Signs Temperature 98.0 F 04/09/18 13:43 Pulse Rate 58 L 04/09/18 14:27 Respiratory Rate 24 04/09/18 14:10 Blood Pressure 126/71 04/09/18 14:10 Pulse Oximetry 100 04/09/18 14:36 Medical Decision Making MDM Narrative Medical decision making narrative: The patient was placed on ECG monitoring pulse oximetry. A 12-lead EKG was obtained revealing sinus rhythm, bradycardia with a rate of 56, no acute ST elevation. Lab work, chest x-ray, CT pulmonary angiogram obtained. Imaging studies reveal scattered pulmonary infiltrates, some new ones in comparison to previous imaging. The patient was initially given Toradol with minimal improvement in her pain. At this point in time the plan would be to admit her for further treatment. Discussed with the resident team who is agreeable. Medical Screen Exam Complete: Yes Emergency Medical Condition: Yes Differential Diagnosis Differential Diagnosis: Pleurisy, pericarditis, myocarditis, acute coronary syndrome, pulmonary embolism, septic emboli, atypical pneumonia, pneumothorax Lab Data Result diagrams: 04/09/18 14:00 04/09/18 14:00 POC Results POC Urine Results Negative Lab Results 04/09/18 04/09/18 04/09/18 Range/Units 14:00 14:00 14:00 WBC 6.9 (4.0-11.0) th/mm3 RBC 4.82 (4.00-5.30) mil/mm3 Hgb 14.3 (11.6-15.3) gm/dL Hct 41.8 (35.0-46.0) % MCV 86.7 (80.0-100.0) fL MCH 29.6 (27.0-34.0) pg MCHC 34.1 (32.0-36.0) % RDW 13.8 (11.6-17.2) % Plt Count 200 (150-450) th/mm3 MPV 8.5 (7.0-11.0) fL Neut % (Auto) 56.2 (16.0-70.0) % Lymph % (Auto) 34.7 (9.0-44.0) % [place] % (Auto) 6.6 (0.0-8.0) % Eos % (Auto) 2.2 (0.0-4.0) % Baso % (Auto) 0.3 (0.0-2.0) % Neut # (Auto) 3.9 (1.8-7.7) th/mm3 Lymph # (Auto) 2.4 (1.0-4.8) th/mm3 [place] # (Auto) 0.5 (0.0-0.9) th/mm3 Eos # (Auto) 0.1 (0.0-0.4) th/mm3 Baso # (Auto) 0.0 (0.0-0.2) th/mm3 WBC Differential . Differential Comment Auto diff final Sodium 141 (136-145) meq/L Potassium 4.1 (3.5-5.1) meq/L Chloride 107 (98-107) meq/L Carbon Dioxide 25.3 (21.0-32.0) meq/L Anion Gap 9 (5-15) meq/L BUN 7 (7-18) mg/dL Creatinine 0.68 (0.50-1.00) mg/dL Estimated GFR Greater than 89 (>89) mL/min Random Glucose 84 (74-106) mg/dL Calcium 9.0 (8.5-10.1) mg/dL Magnesium 2.1 Cancelled (1.5-2.5) mg/dL Total Bilirubin 0.4 (0.2-1.0) mg/dL AST 18 (15-37) U/L ALT 20 (10-53) U/L Alkaline Phosphatase 62 (45-117) U/L Total Creatine Kinase 83 Cancelled (26-192) U/L Troponin I Less than 0.02 L (0.02-0.05) ng/mL B-Natriuretic Peptide (0-100) pg/mL Total Protein 7.7 (6.4-8.2) g/dL Albumin 4.2 (3.4-5.0) g/dL 04/09/18 Range/Units 14:00 WBC (4.0-11.0) th/mm3 RBC (4.00-5.30) mil/mm3 Hgb (11.6-15.3) gm/dL Hct (35.0-46.0) % MCV (80.0-100.0) fL MCH (27.0-34.0) pg MCHC (32.0-36.0) % RDW (11.6-17.2) % Plt Count (150-450) th/mm3 MPV (7.0-11.0) fL Neut % (Auto) (16.0-70.0) % Lymph % (Auto) (9.0-44.0) % [place] % (Auto) (0.0-8.0) % Eos % (Auto) (0.0-4.0) % Baso % (Auto) (0.0-2.0) % Neut # (Auto) (1.8-7.7) th/mm3 Lymph # (Auto) (1.0-4.8) th/mm3 [place] # (Auto) (0.0-0.9) th/mm3 Eos # (Auto) (0.0-0.4) th/mm3 Baso # (Auto) (0.0-0.2) th/mm3 WBC Differential Differential Comment Sodium (136-145) meq/L Potassium (3.5-5.1) meq/L Chloride (98-107) meq/L Carbon Dioxide (21.0-32.0) meq/L Anion Gap (5-15) meq/L BUN (7-18) mg/dL Creatinine (0.50-1.00) mg/dL Estimated GFR (>89) mL/min Random Glucose (74-106) mg/dL Calcium (8.5-10.1) mg/dL Magnesium (1.5-2.5) mg/dL Total Bilirubin (0.2-1.0) mg/dL AST (15-37) U/L ALT (10-53) U/L Alkaline Phosphatase (45-117) U/L Total Creatine Kinase (26-192) U/L Troponin I (0.02-0.05) ng/mL B-Natriuretic Peptide 28 (0-100) pg/mL Total Protein (6.4-8.2) g/dL Albumin (3.4-5.0) g/dL Imaging Data Radiologist's impression: Chest CTA 04/09/18 14:15 CONCLUSION: 1. No evidence of pulmonary embolism. 2. There continues to be several scattered pulmonary infiltrates predominantly in the upper lung plummer. Some are stable and are new compared to the prior examination. Septic emboli versus scattered areas of pneumonia are the primary considerations. Chest X-Ray 04/09/18 14:15 CONCLUSION: Negative examination. Discharge Plan Discharge Disposition Patient Disposition: 30 Still Patient Discharge Condition Condition: Stable Discharge Details Diagnosis: Pleuritic chest pain, Pulmonary nodules/lesions, multiple Physicians Team ED Provider: Romeo Brock ED Midlevel Provider: Vignesh Willingham Primary Care Provider: Primary Care Malou Hardy Rxs /Orders / Referrals /Forms Prescriptions: No Action buspirone 10 mg Tablet 10 mg PO TID RF: 0 fluoxetine [Prozac] 20 mg Capsule 20 mg PO DAILY RF: 0 Discharge Instructions Patient Printed Instructions: Chest Pain (ED) Discharge Interventions Interventions: Vital Signs Last Done: 04/09/18 13:56 Status ED Status: With Doctor
[2018-04-09 14:52] LABS: Baso % (Auto) 0.3 % (0.0-2.0); Eos # (Auto) 0.1 th/mm3 (0.0-0.4); Eos % (Auto) 2.2 % (0.0-4.0); Hematocrit 41.8 % (35.0-46.0); Hemoglobin 14.3 gm/dL (11.6-15.3); Lymph # (Auto) 2.4 th/mm3 (1.0-4.8); Lymph % (Auto) 34.7 % (9.0-44.0); Mean Corpuscular HGB Conc 34.1 % (32.0-36.0); Mean Corpuscular Hemoglobin 29.6 pg (27.0-34.0); Mean Corpuscular Volume 86.7 fL (80.0-100.0); Mean Platelet Volume 8.5 fL (7.0-11.0); Mono # (Auto) 0.5 th/mm3 (0.0-0.9); Mono % (Auto) 6.6 % (0.0-8.0); Neut # (Auto) 3.9 th/mm3 (1.8-7.7); Neut % (Auto) 56.2 % (16.0-70.0); Platelet Count 200 th/mm3 (150-450); Red Blood Count 4.82 mil/mm3 (4.00-5.30); Red Cell Distribution Width 13.8 % (11.6-17.2); White Blood Count 6.9 th/mm3 (4.0-11.0)
--- NOTE | 2018-04-09 14:57 | XR ---
EXAM DATE: 04/09/2018 2:51 PM EST AGE/SEX: 27 years / Female INDICATIONS: Chest pain. CLINICAL DATA: This is the patient's initial encounter. Patient reports that signs and symptoms have been present for 2 days and indicates a pain score of 9/10. MEDICAL/SURGICAL HISTORY: . Irritable bowel syndrome. Collapsed right lung. . sectio n. Colonoscopy, Root canal. COMPARISON: [facility] [place], CHEST 1V SINGLE AP, 03/26/2018. . FINDINGS: A single AP view of the chest demonstrates the lungs to be symmetrically aerated without evidence of mass, infiltrate or effusion. The cardiomediastinal contours are unremarkable. Osseous structures a re intact. CONCLUSION: Negative examination. Electronically signed by: Arnold Vela MD 04/09/2018 2:56 PM EST
[2018-04-09 15:16] LABS: Alanine Aminotransferase 20 U/L (10-53); Albumin 4.2 g/dL (3.4-5.0); Alkaline Phosphatase 62 U/L (45-117); Anion Gap 9 meq/L (5-15); Aspartate Aminotransferase 18 U/L (15-37); Blood Urea Nitrogen 7 mg/dL (7-18); Carbon Dioxide 25.3 meq/L (21.0-32.0); Chloride 107 meq/L (98-107); Creatine Kinase 83 U/L (26-192); Glomerular Filtration Rate Greater Than 89 mL/min (>89); Glucose,Random 84 mg/dL (74-106); Magnesium 2.1 mg/dL (1.5-2.5); Potassium 4.1 meq/L (3.5-5.1); Sodium 141 meq/L (136-145); Total Protein 7.7 g/dL (6.4-8.2)
--- NOTE | 2018-04-09 15:54 | CT ---
EXAM DATE: 04/09/2018 3:46 PM EST AGE/SEX: 27 years / Female INDICATIONS: Chest pain. CLINICAL DATA: This is the patient's initial encounter. Patient reports that signs and symptoms have been present for 1 day and indicates a pain score of 5/10. MEDICAL/SURGICAL HISTORY: . Septic embolism, collapsed lung. section. RADIATION DOSE: 6.43 CTDI (mGy) COMPARISON: [facility] [place], CT CHEST W/O CONTRAST, 03/24/2018. . TECHNIQUE: Volumetric scanning was performed using a multi-row detector CT scanner during bolus infu tracy of 75 ml Omnipaque 350 (iohexol) nonionic water-soluble contrast as a single exam dose. The juanjose a was post processed with a variety of visualization algorithms including full volume maximum intensi ty projection and sliding thin slab reformation. Using automated exposure control and adjustment of t he mA and/or kV according to patient size, radiation dose was kept as low as reasonably achievable to obtain optimal diagnostic quality images. DICOM format image data is available electronically for r eview and comparison. FINDINGS: Pulmonary Arteries: No filling defects are seen in the pulmonary arteries out to the subsegmental ve ssels. The left and right pulmonary arteries are normal in diameter. Lung: There continues to be several scattered pulmonary infiltrates in both lung plummer. Some of the se were present on the prior study and are about the same. There appears to be some new infiltrates n oted in the posterior left upper lung and posterior right upper lung. The lung bases are grossly raad r. Effusion: None. Mediastinum: No evidence of mediastinal or hilar adenopathy. Other: The axilla is unremarkable. CONCLUSION: 1. No evidence of pulmonary embolism. 2. There continues to be several scattered pulmonary infiltrates predominantly in the upper lung fie lds. Some are stable and are new compared to the prior examination. Septic emboli versus scattered ar eas of pneumonia are the primary considerations. Electronically signed by: Marciano Bradley MD 04/09/2018 3:53 PM EST
[2018-04-09] MEDS ORDERED: Morphine Inj 4 MG/ML Vial IV.PUSH ONE (16:34)
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
[2018-04-09] MEDS ORDERED: Acetaminophen 325 MG Tablet PO PRN (19:02)
[2018-04-09] MEDS: Senna/Docusate Sodium 8.6/50 MG Tablet PO SCH (20:25)
[2018-04-09] MEDS ORDERED: Influenza (Quadrivalent) Vaccine 0.5 ML Syringe IM ONE (21:00)
[2018-04-09] MEDS ORDERED: Naloxone Inj 0.4 MG/ML Vial IV.PUSH PRN (21:26)
[2018-04-09] MEDS ORDERED: Morphine Inj 4 MG/ML Vial IV.PUSH PRN (21:26)
[2018-04-09] MEDS ORDERED: Ketorolac Inj 30 MG/ML (IVP) Vial IV.PUSH PRN (21:26)
--- NOTE | 2018-04-09 21:59 | ECG ---
Date Performed: 04/09/2018 Time Performed: 13:54:10 PTAGE: 27 years EKG: SINUS BRADYCARDIA BORDERLINE ECG No significant change from prior electrocardiogram. PREVIOUS TRACING : 03/23/2018 21.27 DOCTOR: Mark Guerra Interpretating Date/Time 04/09/2018 21:57:54
[2018-04-09] MEDS: Morphine Inj 4 MG/ML Vial IV.PUSH PRN (22:10)
[2018-04-10] MEDS: Morphine Inj 4 MG/ML Vial IV.PUSH PRN ×7 (01:18→20:59)
[2018-04-10 07:00] LABS: Baso % (Auto) 0.4 % (0.0-2.0); Eos # (Auto) 0.1 th/mm3 (0.0-0.4); Eos % (Auto) 2.4 % (0.0-4.0); Hematocrit 39.1 % (35.0-46.0); Hemoglobin 13.2 gm/dL (11.6-15.3); Lymph # (Auto) 2.2 th/mm3 (1.0-4.8); Lymph % (Auto) 40.3 % (9.0-44.0); Mean Corpuscular HGB Conc 33.6 % (32.0-36.0); Mean Corpuscular Hemoglobin 28.8 pg (27.0-34.0); Mean Corpuscular Volume 85.7 fL (80.0-100.0); Mean Platelet Volume 8.4 fL (7.0-11.0); Mono # (Auto) 0.4 th/mm3 (0.0-0.9); Mono % (Auto) 7.7 % (0.0-8.0); Neut # (Auto) 2.7 th/mm3 (1.8-7.7); Neut % (Auto) 49.2 % (16.0-70.0); Platelet Count 168 th/mm3 (150-450); Red Blood Count 4.57 mil/mm3 (4.00-5.30); Red Cell Distribution Width 13.7 % (11.6-17.2); White Blood Count 5.5 th/mm3 (4.0-11.0)
[2018-04-10 07:25] LABS: Alanine Aminotransferase 15 U/L (10-53); Albumin 3.5 g/dL (3.4-5.0); Alkaline Phosphatase 53 U/L (45-117); Anion Gap 9 meq/L (5-15); Aspartate Aminotransferase 11 U/L (15-37); Blood Urea Nitrogen 8 mg/dL (7-18); Carbon Dioxide 26.5 meq/L (21.0-32.0); Chloride 109 meq/L (98-107); Glomerular Filtration Rate Greater Than 89 mL/min (>89); Glucose,Random 83 mg/dL (74-106); Potassium 3.8 meq/L (3.5-5.1); Sodium 144 meq/L (136-145); Total Protein 6.4 g/dL (6.4-8.2)
[2018-04-10] MEDS: Senna/Docusate Sodium 8.6/50 MG Tablet PO SCH ×3 (09:49→21:02)
[2018-04-10] MEDS: FLUoxetine 20 MG Capsule PO SCH (09:49)
--- NOTE | 2018-04-10 11:08 | P.PNFP ---
Subjective Interval history: Patient seen and examined at bedside this morning. She reports dyspnea and mild pain with deep inspiration. Her pain medication is aiding in alleviating this pain. Patient reports mild external vaginal itching. She believes that she has a yeast infection. She denies cough, abdominal pain. It was explained to the patient that we are going to be consulting different medical providers and ordering several different tests as we do not have many answers for her this morning. She reports that she did have a pneumothorax due to a possible bleb. She was hospitalized in [place] about 1 year ago. These records will be requested. <Cristel Dyson - 04/10/18 12:21> Results - Labs Result diagrams: 04/11/18 06:04 04/11/18 06:04 <Bart An - 04/12/18 12:00> Abnormal lab results 04/09/18 04/10/18 Range/Units 14:00 05:51 Chloride 109 H (98-107) meq/L Calcium 8.0 L D (8.5-10.1) mg/dL AST 11 L (15-37) U/L Troponin I Less than 0.02 L (0.02-0.05) ng/mL Short CBC 04/09/18 04/10/18 Range/Units 14:00 05:51 WBC 6.9 5.5 (4.0-11.0) th/mm3 Hgb 14.3 13.2 (11.6-15.3) gm/dL Hct 41.8 39.1 (35.0-46.0) % Plt Count 200 168 (150-450) th/mm3 BMP 04/09/18 04/10/18 14:00 05:51 Sodium 141 144 Potassium 4.1 3.8 Chloride 107 109 H Carbon Dioxide 25.3 26.5 BUN 7 8 Creatinine 0.68 0.56 Calcium 9.0 8.0 L D Cardiac Enzymes 04/09/18 04/09/18 Range/Units 14:00 14:00 Total Creatine Kinase 83 Cancelled (26-192) U/L Troponin I Less than 0.02 L (0.02-0.05) ng/mL Liver Function 04/09/18 04/10/18 Range/Units 14:00 05:51 Total Bilirubin 0.4 0.6 (0.2-1.0) mg/dL AST 18 11 L (15-37) U/L ALT 20 15 (10-53) U/L Alkaline Phosphatase 62 53 (45-117) U/L Albumin 4.2 3.5 D (3.4-5.0) g/dL <Cristel Dyson - 04/10/18 11:08> - Imaging Impressions Chest X-Ray 04/11/18 00:00 CONCLUSION: Negative examination. <Bart An - 04/12/18 12:00> Impressions Chest CTA 04/09/18 14:15 CONCLUSION: 1. No evidence of pulmonary embolism. 2. There continues to be several scattered pulmonary infiltrates predominantly in the upper lung plummer. Some are stable and are new compared to the prior examination. Septic emboli versus scattered areas of pneumonia are the primary considerations. Chest X-Ray 04/09/18 14:15 CONCLUSION: Negative examination. <Cristel Dyson - 04/10/18 11:08> Physical Exam Vital signs: Vital Signs 04/11/18 16:00 04/11/18 19:45 04/11/18 20:00 Temperature 98.0 F 98.5 F Pulse Rate 59 L 61 63 Respiratory Rate 18 18 Blood Pressure 113/71 111/67 Pulse Oximetry 100 96 04/11/18 23:45 04/12/18 00:00 04/12/18 03:45 Temperature 98.5 F Pulse Rate 63 60 67 Respiratory Rate 18 Blood Pressure 110/61 Pulse Oximetry 96 04/12/18 04:00 04/12/18 08:00 04/12/18 11:53 Temperature 97.5 F L 97.8 F Pulse Rate 70 56 L Respiratory Rate 18 20 Blood Pressure 165/61 H 110/61 Pulse Oximetry 98 96 99 Intake & Output 04/11/18 04/12/18 04/12/18 18:59 06:59 18:59 Intake Total 460 / 460 Balance 460 / 460 Intake: Oral 460 / 460 Other: Post Void Residual 3 Date of Last Bowel Movement 04/11/18 04/11/18 <Bart An - 04/12/18 12:00> Vital Signs 04/09/18 13:43 04/09/18 13:56 04/09/18 14:10 Temperature 98.0 F Pulse Rate 68 71 58 L Respiratory Rate 16 17 24 Blood Pressure 123/60 135/93 H 126/71 Pulse Oximetry 99 100 100 04/09/18 14:27 04/09/18 14:36 04/09/18 15:00 Temperature Pulse Rate 58 L 61 Respiratory Rate 15 Blood Pressure 106/55 L Pulse Oximetry 100 04/09/18 17:45 04/09/18 19:00 04/09/18 20:00 Temperature 98.4 F Pulse Rate 62 60 74 Respiratory Rate 16 20 16 Blood Pressure 117/74 105/57 L 116/70 Pulse Oximetry 98 97 98 04/10/18 00:00 04/10/18 04:00 04/10/18 08:00 Temperature 98.2 F 97.5 F L 97.5 F L Pulse Rate 68 57 L 64 Respiratory Rate 16 16 18 Blood Pressure 111/55 L 102/58 L 108/71 Pulse Oximetry 98 98 100 Intake & Output 04/09/18 04/10/18 04/10/18 18:59 06:59 18:59 Intake Total 820 / 820 Output Total 450 / 450 Balance 370 / 370 Weight 52.163 kg 56.7 kg Intake: IV 100 / 100 Ofirmev Inj 1,000 mg In 100 ml 100 / 100 @ 400 mls/hr IV.SIG Q6H [facility] Rx# :[id number] Oral 720 / 720 Output: Urine 450 / 450 Other: # Bowel Movements 0 Weight On Admission 56.4 kg <Cristel Dyson 04/10/18 11:08> Narrative: GENERAL: Young adult female lying in bed in [facility]. SKIN: Warm and dry. No lesions or rash. HEAD: Normocephalic. Atraumatic. MMM. EYES: No scleral icterus. No injection or drainage. NECK: Supple, trachea midline. No JVD or lymphadenopathy. CARDIOVASCULAR: Regular rate and rhythm without murmurs, gallops, or rubs. RESPIRATORY: Breath sounds equal bilaterally. No accessory muscle use. No increased WOB. No wheeze, rales, or rhonchi. GASTROINTESTINAL: Abdomen soft, non-tender, nondistended. MUSCULOSKELETAL: No cyanosis, or edema. <Cristel Dyson 04/10/18 12:21> Assessment and Plan - Assessment (1) Nutrition, metabolism, and development symptoms Code(s): R63.8 - Other symptoms and signs concerning food and fluid intake Status: Acute (2) Pulmonary cavitary lesion Code(s): J98.4 - Other disorders of lung Status: Acute (3) Pleuritic chest pain Code(s): R07.81 - Pleurodynia Status: Acute (4) Pulmonary nodules/lesions, multiple Code(s): R91.8 - Other nonspecific abnormal finding of lung field Status: Acute (5) Depression with anxiety Code(s): F41.8 - Other specified anxiety disorders Status: Acute <Bart An - 04/12/18 12:00> (1) Nutrition, metabolism, and development symptoms Code(s): R63.8 - Other symptoms and signs concerning food and fluid intake Status: Acute (2) Pulmonary cavitary lesion Code(s): J98.4 - Other disorders of lung Status: Acute (3) Pleuritic chest pain Code(s): R07.81 - Pleurodynia Status: Acute (4) Pulmonary nodules/lesions, multiple Code(s): R91.8 - Other nonspecific abnormal finding of lung field Status: Acute (5) Depression with anxiety Code(s): F41.8 - Other specified anxiety disorders Status: Acute <Cristel Dyson - 04/10/18 12:21> - Assessment and Plan 27 YO female with PMHx panic attacks, lung collapse 1 year ago, IBD with possible Crohn's disease, ROCIO, and episodes of hypoglycemia who recently was worked up for pleuritic chest cavitary lesions vs septic emboli returns to the ED for recurrent pleuritic chest pain with increasing lesions since hospitalization 2 weeks ago. Consider malignancy vs infection vs autoimmune etiology. Impression on admission: CBC and CMP are both wnl Troponin <0.02 CXR negative CTA Chest negative for PE; predominantly upper lung field pulmonary infiltrates , some stable and some new compared to previous exam . Consider septic emboli vs scattered areas of PNA 1. Pleuritic chest pain with suspicious findings on chest CTA -Pulmonology consulted--appreciate recs -Bronchial wash culture -Quantiferon PENDING -Toradol 15 mg IV q6h, pain 4-7 -Morphine 4 mg IV pain, pain 8-10 -EKG showing sinus bradycardia -Troponin <0.02 -Cardiology consulted for possible SAYRA 2. Pulmonary lesions -ID consulted--appreciate recs -On previous hospitalization, Dr Harp did not believe these lesions were infectious -Hold antibiotic treatment due to lack of infectious etiology at this time -Obtain records from [facility] regarding patient's hospitalization for pneumothorax -See above for plan 3. Depression/anxiety -Continue home Prozac 20 mg daily and Buspar 10 mg TID 4. Vaginal candidiasis -Fluconazole 150 p.o. once 5. FEN/GI/PPx: Fluids: PO fluids Electrolytes: wnl, follow with daily labs Nutrition: regular diet GI: Protonix 40 mg daily PPx: SCDs Tylenol pain 1-3, temp >100.4 Carolyn-colace BID Pt SDW Dr An, Dr. Aguilar <Cristel Dyson - 04/10/18 12:21> - Attending Attestation See the residents documentation for details. I saw and evaluated the patient regarding the bhatia portions of this evaluation and agree with the residents findings and plans as written. Parts of this note were created using [employer] voice recognition software program. While efforts were made to correct any mistakes made by this software, some mistakes, errors, and omissions may remain in the final note that were not caught when the note was originally created. Plan of care was discussed and agreed upon with the patient as specifically documented in the above note. An opportunity to ask questions with explanation was provided. Patient voiced understanding on all information reviewed and discussed. <Bart An - 04/12/18 12:00>
[2018-04-10] MEDS ORDERED: Fluconazole 100 MG Tablet PO ONE (12:09)
--- NOTE | 2018-04-10 14:52 | MB ---
cc: Mauricio Salinas MD DATE: 04/10/2018 REASON FOR CONSULTATION: Transesophageal echocardiography. HISTORY OF PRESENT ILLNESS: The patient is a 27-year-old white female with a history of spontaneous pneumothorax 2017, irritable bowel syndrome, status post recent admission to [place] for evaluation of multiple upper lobe infiltrates in her lungs, who returned to the hospital with complaints of chest pain. For the past month, she has had intermittent bilateral parasternal chest pains, mostly described as "pressure" although she often has paroxysms of very sharp right greater than the left parasternal chest pains. Often taking a deep breath exacerbates or precipitates the chest pains. In addition, changing positions will precipitate the chest pains. Workup has revealed no evidence for pneumothorax, aortic dissection, or pulmonary embolism. She denies shortness of breath, lightheadedness, syncope, near syncope, palpitations, pedal edema, paroxysmal nocturnal dyspnea, fevers, rashes, joint pains. At times, she does feel nauseated when the chest pains are especially severe. PAST MEDICAL HISTORY: 1. Spontaneous pneumothorax, 2017. 2. Irritable bowel syndrome. PAST SURGICAL HISTORY: section. CARDIAC MEDICATIONS AT HOME: None. ALLERGIES: CIPROFLOXACIN, PENICILLIN, SULFA. FAMILY HISTORY: There is no significant family history of early myocardial infarction. SOCIAL HISTORY: The patient smokes about a pack of cigarettes per day. She denies drug or alcohol abuse. REVIEW OF SYSTEMS: As in history of present illness, otherwise negative or noncontributory. She also denies headache, abdominal pain, melena, dyspepsia, bright red blood per rectum. PHYSICAL EXAMINATION: VITAL SIGNS: Blood pressure 108/63 with a pulse of 64, respirations 18. GENERAL: She is a well-developed, well-nourished white female, in no acute distress. HEENT: Jugular venous pressure is normal. Carotid pulses are 2+ bilaterally and without bruits. CHEST: Reveals clear lungs plummer. CARDIAC: She has a regular rhythm and rate without S3, S4, or murmur. ABDOMEN: She has a soft, nontender abdomen. Bowel sounds are present. There is no definite hepatosplenomegaly. EXTREMITIES: No clubbing, cyanosis or edema. DIAGNOSTIC DATA: Chest x-ray showed no acute disease. LABORATORY DATA: EKG shows sinus bradycardia, otherwise normal EKG. LABORATORY DATA: Includes a normal CBC. Potassium 3.8, BUN 8, creatinine 0.56. C-reactive protein less than 0.29. IMPRESSION: Scattered upper lung infiltrates, possibly with a couple cavitary in nature, in this 27-year-old white female with a history of irritable bowel syndrome, spontaneous pneumothorax 2017. I have been asked to see the patient for transesophageal echocardiography to rule out endocarditis as a cause for septic emboli. Overall, I doubt she has endocarditis. She has no leukocytosis. The patient has been afebrile. A recent transthoracic echo, which was of good quality, showed no definite vegetation. A comprehensive infectious disease workup during her last admission revealed no definitive evidence for an infectious process. Nonetheless, would agree with transesophageal echocardiography to most definitively rule out right-sided endocarditis. The nature of this procedure and potential risks have been outlined to the patient, who agrees to proceed. Her chest pains are indeed extremely atypical for myocardial ischemia. She has no risk factors for coronary disease. EKG is normal. RECOMMENDATIONS: Transesophageal echocardiography this Thursday morning. Mauricio Salinas MD GHR/ct , 02:20 PM , 02:28 PM MTDD
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
--- NOTE | 2018-04-10 20:12 | MB ---
cc: Aziza Rosario MD DATE: 04/10/2018 REASON FOR CONSULTATION: Cavitary lung lesions and chest pain. HISTORY OF PRESENT ILLNESS: This is a 27-year-old white female with a prior history of panic disorder, hypoglycemia and history for possible Crohn's, had been admitted 03/26/2018 for cavitating lung lesions associated with some mid chest pain. The patient was evaluated by pulmonology and infectious disease and underwent a bronchoscopy at that time, which revealed no significant etiology. Cultures from the bronchoscopy were all negative. The CT chest at the time showed evidence of multiple lung lesions, some of which were cavitating and were suspected to be either septic emboli and/or pneumonia. The patient was discharged following treatment and she was readmitted yesterday with a mid chest pain radiating into the back and shoulder and quite severe upon taking deep breaths, but denied fevers or chills and denied any nausea, vomiting or hematemesis. The pain was intermittent and sharp. PAST MEDICAL PAST HISTORY: Significant for history of panic attacks, history of Crohn's possible and is treated for hyperglycemia. She has had 3 C-sections. Past history also includes an episode of spontaneous pneumothorax 1 year ago, which had resolved and no further workup was done. HABITS: The patient was a smoker, 1 pack per day for 13 years and drinks alcohol occasionally. Denies any other illicit drugs. FAMILY HISTORY: Significant for skin cancer in mother and grandfather with heart disease. ALLERGIES: SULFA, PENICILLIN AND CIPRO. MEDICATIONS: List included: 1. BuSpar. 2. Prozac. REVIEW OF SYSTEMS: The patient has no hemoptysis, night sweats, or recent weight loss. She has some abdominal discomfort. Denies any urinary symptoms or flank pain. No leg or calf muscle pains. She has some joint pains and denies skin lesions. She has had panic attacks. PHYSICAL EXAMINATION: GENERAL: This is an averagely built young white female, who is in no acute distress. VITAL SIGNS: Blood pressure 110/60. Pulse is 65, respirations 20, temperature 98.8. HEENT: Head is normocephalic. Pupils reactive and equal. Tongue is moist. Throat is clear. Nasal mucosa edematous. NECK: Supple, no bruits. No lymphadenopathy or thyromegaly. CHEST: Equal movements. Lung plummer were essentially clear. Percussion resonant throughout. HEART: Sounds are regular, S1 and S2 with no murmur. No S3 or rub. ABDOMEN: Soft, nontender. No organomegaly. Bowel sounds are active. EXTREMITIES: No lesions or edema. No calf tenderness. Reflexes are 1+ with no gross motor deficits. Cranial nerves are grossly intact. SKIN: No lesions were observed. IMPRESSION: 1. Multiple nodular lung lesions with cavitation, etiology undetermined. 2. Pleuritic chest pain. 3. Panic disorder. 4. Possible Crohn's. 5. History of hypoglycemia. PLAN: The patient will be sent for a pulmonary function test with bronchodilators. Infectious disease consult is in progress, and antibiotics will be added per their recommendations. We will also get a repeat CBC and pain control as ordered including morphine injection, 4 mg q.4 hours p.r.n. and counseled about quitting cigarette smoking and using a nicotine patch. Bronchodilators will be added if necessary and possibly inhaled steroid. Thank you Dr. An for this consultation. Aziza Rosario MD VJD/ct , 06:18 PM , 06:34 PM
[2018-04-10 20:46] LABS: Hepatitis A IgM Antibody Nonreactive (Nonreactive); Hepatitits B Surface Antigen Nonreactive (Nonreactive)
[2018-04-11] MEDS: Morphine Inj 4 MG/ML Vial IV.PUSH PRN ×8 (00:03→23:09)
[2018-04-11 06:46] LABS: Baso % (Auto) 0.3 % (0.0-2.0); Eos # (Auto) 0.1 th/mm3 (0.0-0.4); Eos % (Auto) 1.6 % (0.0-4.0); Hematocrit 41.6 % (35.0-46.0); Hemoglobin 14.5 gm/dL (11.6-15.3); Lymph # (Auto) 1.7 th/mm3 (1.0-4.8); Lymph % (Auto) 30.2 % (9.0-44.0); Mean Corpuscular HGB Conc 34.9 % (32.0-36.0); Mean Corpuscular Hemoglobin 29.6 pg (27.0-34.0); Mean Corpuscular Volume 84.7 fL (80.0-100.0); Mean Platelet Volume 8.2 fL (7.0-11.0); Mono # (Auto) 0.5 th/mm3 (0.0-0.9); Mono % (Auto) 9.4 % (0.0-8.0); Neut # (Auto) 3.2 th/mm3 (1.8-7.7); Neut % (Auto) 58.5 % (16.0-70.0); Platelet Count 177 th/mm3 (150-450); Red Blood Count 4.91 mil/mm3 (4.00-5.30); Red Cell Distribution Width 13.6 % (11.6-17.2); White Blood Count 5.6 th/mm3 (4.0-11.0)
[2018-04-11 07:11] LABS: Anion Gap 9 meq/L (5-15); Blood Urea Nitrogen 7 mg/dL (7-18); Calcium 8.5 mg/dL (8.5-10.1); Carbon Dioxide 27.1 meq/L (21.0-32.0); Chloride 104 meq/L (98-107); Glomerular Filtration Rate Greater Than 89 mL/min (>89); Glucose,Random 83 mg/dL (74-106); Potassium 3.5 meq/L (3.5-5.1); Sodium 140 meq/L (136-145)
[2018-04-11] MEDS: FLUoxetine 20 MG Capsule PO SCH (08:32)
[2018-04-11] MEDS: Senna/Docusate Sodium 8.6/50 MG Tablet PO SCH ×2 (08:33→20:08)
[2018-04-11 10:55] LABS: Bilirubin,Urine Negative (Negative); Clarity,Urine Clear (Clear); Color,Urine Straw (Yellw/Straw); Glucose,Urine (UA) Negative (Negative); Leukocyte Esterase,Urine Negative (Negative); Nitrite,Urine Negative (Negative); Specific Gravity,Urine 1.003 (1.002-1.035); Squamous Epithelial Cell,Urine <1 /hpf (0-5)
--- NOTE | 2018-04-11 13:33 | P.PNFP ---
Subjective Interval history: Ms. Gonzalez had no acute events overnight. She continues to have some pleural chest pain. Continues to to deny any IV drug use, and is worried today that she feels like she is having trouble urinating. We ordered a bladder scan that saw 60 cc of urine in the bladder followed by in and out cath which saw 210 cc of urine taken off. We will get urinalysis and culture of this urine. We will continue bladder scans until patient's ability to void spontaneously corrects itself. [facility] has ordered a number of tests for fungal agents and CF that we are waiting results on. She will be held n.p.o. at midnight tonight for planned SAYRA tomorrow. Patient vital signs and labs are within normal limits. As above , her chief pleural chest pain remains, she sometimes feels short of breath, there is no nausea, vomiting, diarrhea, abdominal or leg pain. There is no dysuria, however, there is urinary retention as above. <Jayro Phan III - 04/11/18 13:33> Results - Labs Result diagrams: 04/11/18 06:04 04/11/18 06:04 <Bart An - 04/12/18 12:04> Abnormal lab results 04/11/18 04/11/18 Range/Units 06:04 10:15 [place] % (Auto) 9.4 H (0.0-8.0) % Urine Occult Blood Small H (Negative) Short CBC 04/11/18 Range/Units 06:04 WBC 5.6 (4.0-11.0) th/mm3 Hgb 14.5 (11.6-15.3) gm/dL Hct 41.6 (35.0-46.0) % Plt Count 177 (150-450) th/mm3 BMP 04/11/18 06:04 Sodium 140 Potassium 3.5 Chloride 104 Carbon Dioxide 27.1 BUN 7 Creatinine 0.70 Calcium 8.5 Urine 04/11/18 Range/Units 10:15 Urine Color Straw (Yellw/Straw) Urine Clarity Clear (Clear) Urine pH 7.0 (5.0-8.5) Ur Specific [place] 1.003 (1.002-1.035) Urine Protein Negative (Neg-Trace) mg/dL Urine Glucose (UA) Negative (Negative) mg/dL <Jayro Phan III - 04/11/18 13:33> - Imaging Impressions Chest X-Ray 04/11/18 00:00 CONCLUSION: Negative examination. <Bart An - 04/12/18 12:04> Physical Exam Vital signs: Vital Signs 04/11/18 16:00 04/11/18 19:45 04/11/18 20:00 Temperature 98.0 F 98.5 F Pulse Rate 59 L 61 63 Respiratory Rate 18 18 Blood Pressure 113/71 111/67 Pulse Oximetry 100 96 04/11/18 23:45 04/12/18 00:00 04/12/18 03:45 Temperature 98.5 F Pulse Rate 63 60 67 Respiratory Rate 18 Blood Pressure 110/61 Pulse Oximetry 96 04/12/18 04:00 04/12/18 08:00 04/12/18 11:53 Temperature 97.5 F L 97.8 F Pulse Rate 70 56 L Respiratory Rate 18 20 Blood Pressure 165/61 H 110/61 Pulse Oximetry 98 96 99 Intake & Output 04/11/18 04/12/18 04/12/18 18:59 06:59 18:59 Intake Total 460 / 460 Balance 460 / 460 Intake: Oral 460 / 460 Other: Post Void Residual 3 Date of Last Bowel Movement 04/11/18 04/11/18 <Bart An - 04/12/18 12:04> Vital Signs 04/10/18 16:00 04/10/18 17:30 04/10/18 20:00 Temperature 98.8 F 97.5 F L Pulse Rate 64 72 Respiratory Rate 17 18 Blood Pressure 118/65 119/59 L Pulse Oximetry 98 98 99 04/11/18 00:00 04/11/18 04:00 04/11/18 08:00 Temperature 97.9 F 97.7 F 97.6 F Pulse Rate 56 L 59 L 70 Respiratory Rate 18 18 17 Blood Pressure 110/54 L 100/56 L 107/69 Pulse Oximetry 98 99 98 04/11/18 12:00 Temperature 97.5 F L Pulse Rate 70 Respiratory Rate 17 Blood Pressure 107/69 Pulse Oximetry 98 Intake & Output 04/10/18 04/11/18 04/11/18 18:59 06:59 18:59 Intake Total 420 / 420 Output Total 1625 / 1625 Balance -1625 / -1625 420 / 420 Intake: Oral 420 / 420 Output: Urine 1625 / 1625 Other: # Voids 3 <Jayro Phan III - 04/11/18 13:33> Narrative: GENERAL: Well-nourished well-developed, no acute distress SKIN: Cool and dry, no rash HEAD: Atraumatic. Normocephalic. EYES: No scleral icterus. No injection or drainage. EOMI. NECK: Trachea midline. Supple, nontender, no meningeal signs. CARDIOVASCULAR: RRR with no murmur, rub or gallop RESPIRATORY: Clear to auscultation bilaterally. GASTROINTESTINAL: Abdomen soft, nontender. No guarding or rebound. +BS. MUSCULOSKELETAL: Extremities without clubbing, cyanosis. NEUROLOGICAL: Alert oriented 3. Nonfocal. Normal speech. PSYCH: Appears anxious. <Jayro Phan III - 04/11/18 13:33> - Urinary Catheter Management Straight Cath placed during this visit: no <Bart An - 04/12/18 12:04> yes, but has since been removed by the nurse <Jayro Phan III - 04/11/18 13:33> Reason for continuing: Not indwelling catheter <Jayro Phan III 04/11/18 13:33> Insertion date: 04/11/18 <Jayro Phan III 04/11/18 13:33> Insertion time: 09:51 <Jayro Phan III 04/11/18 13:33> Removal date: 04/11/18 <Jayro Phan III 04/11/18 13:33> Removal time: 09:51 <Jayro Phan III 04/11/18 13:33> Assessment and Plan - Assessment (1) Nutrition, metabolism, and development symptoms Code(s): R63.8 - Other symptoms and signs concerning food and fluid intake Status: Acute (2) Pulmonary cavitary lesion Code(s): J98.4 - Other disorders of lung Status: Acute (3) Pleuritic chest pain Code(s): R07.81 - Pleurodynia Status: Acute (4) Pulmonary nodules/lesions, multiple Code(s): R91.8 - Other nonspecific abnormal finding of lung field Status: Acute (5) Depression with anxiety Code(s): F41.8 - Other specified anxiety disorders Status: Acute <Bart An - 04/12/18 12:04> (1) Nutrition, metabolism, and development symptoms Code(s): R63.8 - Other symptoms and signs concerning food and fluid intake Status: Acute (2) Pulmonary cavitary lesion Code(s): J98.4 - Other disorders of lung Status: Acute (3) Pleuritic chest pain Code(s): R07.81 - Pleurodynia Status: Acute (4) Pulmonary nodules/lesions, multiple Code(s): R91.8 - Other nonspecific abnormal finding of lung field Status: Acute (5) Depression with anxiety Code(s): F41.8 - Other specified anxiety disorders Status: Acute <Jayro Phan III - 04/11/18 13:22> - Assessment and Plan 27 YO female with PMHx panic attacks, lung collapse 1 year ago, IBD with possible Crohn's disease, ROCIO, and episodes of hypoglycemia who recently was worked up for pleuritic chest cavitary lesions vs septic emboli returns to the ED for recurrent pleuritic chest pain with increasing lesions since hospitalization 2 weeks ago. Consider malignancy vs infection vs autoimmune etiology. Impression on admission: CBC and CMP are both wnl Troponin <0.02 BNP wnl CRP 0.29 ESR 3 CXR negative CTA Chest negative for PE; predominantly upper lung field pulmonary infiltrates , some stable and some new compared to previous exam . Consider septic emboli vs scattered areas of PNA 1. Pleuritic chest pain with suspicious findings on chest CTA -Pulmonology consulted--appreciate recs -Bronchial wash culture -Quantiferon, CF, Histoplasma, Blastomyces, Coccidioides, Aspergillus, Alpha-1 antitrypsin, TESFAYE PENDING -Hepatitis negative -Toradol 15 mg IV q6h, pain 4-7 -Morphine 4 mg IV pain, pain 8-10 -EKG showing sinus bradycardia -Troponin <0.02 -Cardiology consulted for possible SAYRA 2. Pulmonary lesions -ID consulted--appreciate recs -On previous hospitalization, Dr Harp did not believe these lesions were infectious -Hold antibiotic treatment due to lack of infectious etiology at this time -Obtain records from [facility] regarding patient's hospitalization for pneumothorax -See above for plan 3. Depression/anxiety -Continue home Prozac 20 mg daily and Buspar 10 mg TID 4. Vaginal candidiasis -Fluconazole 150 p.o. once 5. FEN/GI/PPx: Fluids: PO fluids Electrolytes: wnl, follow with daily labs Nutrition: regular diet GI: Protonix 40 mg daily PPx: SCDs Tylenol pain 1-3, temp >100.4 Carolyn-colace BID Pt SDW Dr An <Jayro Phan III - 04/11/18 13:33> - Attending Attestation See the residents documentation for details. I saw and evaluated the patient regarding the bhatia portions of this evaluation and agree with the residents findings and plans as written. Parts of this note were created using [employer] voice recognition software program. While efforts were made to correct any mistakes made by this software, some mistakes, errors, and omissions may remain in the final note that were not caught when the note was originally created. Plan of care was discussed and agreed upon with the patient as specifically documented in the above note. An opportunity to ask questions with explanation was provided. Patient voiced understanding on all information reviewed and discussed. <Bart An - 04/12/18 12:04>
--- NOTE | 2018-04-11 15:05 | P.PN ---
Subjective Interval history: Has some pain in chest and SOB. No cough .No Fever. Will have SAYRA in am. Physical Exam Vital signs: Vital Signs 04/10/18 16:00 04/10/18 17:30 04/10/18 20:00 Temperature 98.8 F 97.5 F L Pulse Rate 64 72 Respiratory Rate 17 18 Blood Pressure 118/65 119/59 L Pulse Oximetry 98 98 99 04/11/18 00:00 04/11/18 04:00 04/11/18 08:00 Temperature 97.9 F 97.7 F 97.6 F Pulse Rate 56 L 59 L 70 Respiratory Rate 18 18 17 Blood Pressure 110/54 L 100/56 L 107/69 Pulse Oximetry 98 99 98 04/11/18 12:00 Temperature 97.5 F L Pulse Rate 61 Respiratory Rate 17 Blood Pressure 107/69 Pulse Oximetry 98 Intake & Output 04/10/18 04/11/18 04/11/18 18:59 06:59 18:59 Intake Total 420 / 420 Output Total 1625 / 1625 Balance -1625 / -1625 420 / 420 Intake: Oral 420 / 420 Output: Urine 1625 / 1625 Other: # Voids 3 Narrative: GENERAL: Well-nourished well-developed,W/F in no acute distress SKIN: Cool and dry, no rash HEAD: Atraumatic. Normocephalic. EYES: No scleral icterus. No injection or drainage. EOMI. NECK: Trachea midline. Supple, nontender, no meningeal signs. CARDIOVASCULAR: RRR with no murmur, rub or gallop RESPIRATORY: Clear to auscultation bilaterally. GASTROINTESTINAL: Abdomen soft, nontender. No guarding or rebound. +BS. MUSCULOSKELETAL: Extremities without clubbing, cyanosis. NEUROLOGICAL: Alert oriented 3. Nonfocal. Normal speech. PSYCH: anxious. - Urinary Catheter Management Straight Cath placed during this visit: yes, but has since been removed by the nurse Reason for continuing: Not indwelling catheter Insertion date: 04/11/18 Insertion time: 09:51 Removal date: 04/11/18 Removal time: 09:51 Results - Labs CBC & Chem 7: 04/11/18 06:04 04/11/18 06:04 Laboratory Results - last 24 hr 04/10/18 04/11/18 04/11/18 18:52 06:04 06:04 WBC 5.6 RBC 4.91 Hgb 14.5 Hct 41.6 MCV 84.7 MCH 29.6 MCHC 34.9 RDW 13.6 Plt Count 177 MPV 8.2 Neut % (Auto) 58.5 Lymph % (Auto) 30.2 [place] % (Auto) 9.4 H Eos % (Auto) 1.6 Baso % (Auto) 0.3 Neut # (Auto) 3.2 Lymph # (Auto) 1.7 [place] # (Auto) 0.5 Eos # (Auto) 0.1 Baso # (Auto) 0.0 WBC Differential . Differential Comment Auto diff final Sodium 140 Potassium 3.5 Chloride 104 Carbon Dioxide 27.1 Anion Gap 9 BUN 7 Creatinine 0.70 Estimated GFR Greater than 89 Random Glucose 83 Calcium 8.5 Urine Color Urine Clarity Urine pH Ur Specific [place] Urine Protein Urine Glucose (UA) Urine Ketones Urine Occult Blood Urine Nitrate Urine Bilirubin Urine Urobilinogen Ur Leukocyte Esterase Urine RBC Urine WBC Ur Squamous Epith Cells Micro UA Comment Ur Microscopic Review Urine Culture Comments Hepatitis A IgM Ab Nonreactive Hep Bs Antigen Nonreactive Hep B Core IgM Ab Nonreactive Hep C IgG Ab Nonreactive 04/11/18 10:15 WBC RBC Hgb Hct MCV MCH MCHC RDW Plt Count MPV Neut % (Auto) Lymph % (Auto) [place] % (Auto) Eos % (Auto) Baso % (Auto) Neut # (Auto) Lymph # (Auto) [place] # (Auto) Eos # (Auto) Baso # (Auto) WBC Differential Differential Comment Sodium Potassium Chloride Carbon Dioxide Anion Gap BUN Creatinine Estimated GFR Random Glucose Calcium Urine Color Straw Urine Clarity Clear Urine pH 7.0 Ur Specific [place] 1.003 Urine Protein Negative Urine Glucose (UA) Negative Urine Ketones Negative Urine Occult Blood Small H Urine Nitrate Negative Urine Bilirubin Negative Urine Urobilinogen Less than 2 Ur Leukocyte Esterase Negative Urine RBC Less than 1 Urine WBC Less than 1 Ur Squamous Epith Cells <1 Micro UA Comment Culture not ind Ur Microscopic Review Not Reportable Urine Culture Comments Culture not ind Hepatitis A IgM Ab Hep Bs Antigen Hep B Core IgM Ab Hep C IgG Ab Microbiology 04/10/18 18:45 Blood - Peripheral Aerobic Blood Culture - Preliminary No growth in 1 day 04/10/18 18:45 Blood - Peripheral Anaerobic Blood Culture - Preliminary No growth in 1 day 04/10/18 18:52 Blood - Peripheral Aerobic Blood Culture - Preliminary No growth in 1 day 04/10/18 18:52 Blood - Peripheral Anaerobic Blood Culture - Preliminary No growth in 1 day Assessment and Plan - Assessment (1) Septic pulmonary embolism Code(s): I26.90 - Septic pulmonary embolism without acute cor pulmonale Status : Acute (2) Pulmonary cavitary lesion Code(s): J98.4 - Other disorders of lung Status: Acute (3) Pleuritic chest pain Code(s): R07.81 - Pleurodynia Status: Acute (4) Pulmonary nodules/lesions, multiple Code(s): R91.8 - Other nonspecific abnormal finding of lung field Status: Acute (5) Nutrition, metabolism, and development symptoms Code(s): R63.8 - Other symptoms and signs concerning food and fluid intake Status: Acute (6) Depression with anxiety Code(s): F41.8 - Other specified anxiety disorders Status: Acute (7) delivery delivered Code(s): O82 - Encounter for delivery without indication Status: Acute - Plan 1. Await blood cultures 2. O2 2 L PRN 3. Albuterol nebs qid prn 4. PFT with bronchodilator 5. SAYRA in am. 6. Rpt CBC,BMP
--- NOTE | 2018-04-11 15:56 | XR ---
EXAM DATE: 04/11/2018 3:29 PM EST AGE/SEX: 27 years / Female INDICATIONS: R/O pneumothorax. CLINICAL DATA: This is the patient's subsequent encounter. Patient reports that signs and symptoms h ave been present for 4 - 6 days and indicates a pain score of 5/10. MEDICAL/SURGICAL HISTORY: . . Irritable bowel syndrome. Collapsed right lung. . sectio n. Colonoscopy, Root canal. . COMPARISON: [facility] – [place], CHEST 1V SINGLE AP, 04/09/2018. . FINDINGS: A single AP view of the chest demonstrates the lungs to be symmetrically aerated without evidence of mass, infiltrate or effusion. The cardiomediastinal contours are unremarkable. Osseous structures a re intact. CONCLUSION: Negative examination. Electronically signed by: Aba Mehta MD 04/11/2018 3:54 PM EST
[2018-04-12] MEDS: Morphine Inj 4 MG/ML Vial IV.PUSH PRN ×4 (02:06→13:56)
[2018-04-12] MEDS ORDERED: Metoprolol Tartrate 25 MG Tablet PO ONE (07:08)
[2018-04-12] MEDS ORDERED: Chlorhexidine Gluconate 2% 1 Pack (2 Cloths) TOPICAL ONE (07:08)
[2018-04-12] MEDS ORDERED: Sodium Chlor 0.9% Inj 500 ML IV.SIG SCH (08:00)
--- NOTE | 2018-04-12 08:46 | P.PNCA ---
Subjective Interval history: Unchanged chest pain, increases with position changes. No dyspnea, dizziness, palpitations. Medications and Allergies Active Medications: Active Medications Acetaminophen (Tylenol) 650 mg PO Q4H PRN PRN Reason: pain1-3/Temp > 100.4 Albuterol (Albuterol Neb (Prn)) 1.25 mg NEB Q6HR NEB PRN PRN Reason: DYSPNEA Buspirone HCl (Buspar) 10 mg PO TID [facility] Last Admin: 04/11/18 17:04 Dose: 10 mg Fluoxetine HCl (Prozac) 20 mg PO DAILY [facility] Last Admin: 04/11/18 08:32 Dose: 20 mg Lactated Ringer's (Lr 1000 Ml Inj) 1,000 mls @ 30 mls/hr IV.SIG .Q24H [facility] Stop: 04/13/18 07:14 Sodium Chloride (Ns Inj) 500 mls @ 30 mls/hr IV.SIG .Q10H [facility] Ketorolac Tromethamine (Toradol Inj) 15 mg IV.PUSH Q6H PRN PRN Reason: pain 4-7 Stop: 04/14/18 21:25 Last Admin: 04/11/18 19:07 Dose: 15 mg Miscellaneous (Pill Splitter) 1 each OTHER UNSCH [facility] Morphine Sulfate (Morphine Inj) 4 mg IV.PUSH Q3H PRN PRN Reason: PAIN 6-10;IF UNABLE TO TAKE PO Last Admin: 04/12/18 05:33 Dose: 4 mg Naloxone HCl (Narcan Inj) 0.4 mg IV.PUSH UNSCH PRN PRN Reason: SEE LABEL COMMENTS Nicotine (Habitrol 21 Mg Patch.24 Hr) 1 patch T-DERMAL DAILY [facility] Last Admin: 04/11/18 08:32 Dose: 1 patch Ondansetron HCl (Zofran Inj) 4 mg IV.PUSH Q6H PRN PRN Reason: NAUSEA OR VOMITING Pantoprazole Sodium (Protonix) 40 mg PO DAILY [facility] Last Admin: 04/11/18 08:33 Dose: 40 mg Senna/Docusate Sodium (Carolyn-Colace) 1 tab PO BID [facility] Last Admin: 04/11/18 20:08 Dose: Not Given Sodium Chloride (Ns Flush) 2 ml IV.FLUSH UNSCH PRN PRN Reason: FLUSH AFTER USING IV ACCESS Last Admin: 04/11/18 20:10 Dose: 2 ml Allergies Allergy/AdvReac Type Severity Reaction Status Date / Time ciprofloxacin [From Cipro] Allergy Rash Verified 04/09/18 13:43 Penicillins Allergy Rash Verified 04/09/18 13:43 Sulfa (Sulfonamide Allergy Edema Verified 04/09/18 13:43 Antibiotics) Home Medications Medication Instructions Recorded Confirmed Type buspirone 10 mg PO TID 04/09/18 04/09/18 History fluoxetine [Prozac] 20 mg PO DAILY 04/09/18 04/09/18 History Physical Exam Vital signs: Vital Signs 04/11/18 12:00 04/11/18 16:00 04/11/18 19:45 Temperature 97.5 F L 98.0 F Pulse Rate 61 59 L 61 Respiratory Rate 17 18 Blood Pressure 107/69 113/71 Pulse Oximetry 98 100 04/11/18 20:00 04/11/18 23:45 04/12/18 00:00 Temperature 98.5 F 98.5 F Pulse Rate 63 63 60 Respiratory Rate 18 18 Blood Pressure 111/67 110/61 Pulse Oximetry 96 96 04/12/18 03:45 04/12/18 04:00 Temperature 97.5 F L Pulse Rate 67 70 Respiratory Rate 18 Blood Pressure 165/61 H Pulse Oximetry 98 Intake & Output 04/11/18 04/12/18 04/12/18 18:59 06:59 18:59 Intake Total 460 / 460 Balance 460 / 460 Intake: Oral 460 / 460 Other: Post Void Residual 3 Date of Last Bowel Movement 04/11/18 - Constitutional no acute distress - Routine Neck Exam Absent: JVD - Routine Respiratory Exam Present: CTA bilaterally - Routine Cardiovascular Exam Present: RRR, S1, S2. Absent: murmur, gallop - Routine Abdominal Exam Present: soft, normoactive bowel sounds. Absent: tenderness, organomegaly - Routine Extremities Exam Absent: cyanosis, clubbing, edema - Urinary Catheter Management Straight Cath placed during this visit: yes, but has since been removed by the nurse Reason for continuing: Not indwelling catheter Insertion date: 04/11/18 Insertion time: 09:51 Removal date: 04/11/18 Removal time: 09:51 Results 04/11/18 06:04 04/11/18 06:04 CBC 04/11/18 Range/Units 06:04 WBC 5.6 (4.0-11.0) th/mm3 RBC 4.91 (4.00-5.30) mil/mm3 Hgb 14.5 (11.6-15.3) gm/dL Hct 41.6 (35.0-46.0) % Plt Count 177 (150-450) th/mm3 Neut # (Auto) 3.2 (1.8-7.7) th/mm3 Lymph # (Auto) 1.7 (1.0-4.8) th/mm3 [place] # (Auto) 0.5 (0.0-0.9) th/mm3 Eos # (Auto) 0.1 (0.0-0.4) th/mm3 Baso # (Auto) 0.0 (0.0-0.2) th/mm3 Comprehensive Metabolic Panel 04/11/18 Range/Units 06:04 Sodium 140 (136-145) meq/L Potassium 3.5 (3.5-5.1) meq/L Chloride 104 (98-107) meq/L Carbon Dioxide 27.1 (21.0-32.0) meq/L BUN 7 (7-18) mg/dL Creatinine 0.70 (0.50-1.00) mg/dL Calcium 8.5 (8.5-10.1) mg/dL Intake and Output 04/11/18 04/12/18 04/12/18 22:59 06:59 14:59 Intake Total 460 / 460 Balance 460 / 460 Intake: Oral 460 / 460 Other: Post Void Residual 3 Date of Last Bowel Movement 04/11/18 - Imaging and Cardiology Imaging: Impressions Chest X-Ray 04/11/18 00:00 CONCLUSION: Negative examination. Assessment and Plan - Assessment (1) Pulmonary nodules/lesions, multiple Code(s): R91.8 - Other nonspecific abnormal finding of lung field Status: Acute Plan: No source of septic emboli noted on normal SAYRA today. (2) Chest pain Code(s): R07.9 - Chest pain, unspecified Status: Acute Plan: Chest pain persists. Seems most consistent with musculoskeletal etiology. SAYRA today normal. - Plan Code Status: full code (2) Chest pain Qualifiers: Chest pain type: unspecified Qualified Code(s): R07.9 - Chest pain, unspecified
[2018-04-12] MEDS: FLUoxetine 20 MG Capsule PO SCH (09:19)
[2018-04-12] MEDS: Senna/Docusate Sodium 8.6/50 MG Tablet PO SCH (09:20)
--- NOTE | 2018-04-12 10:02 | P.PNFP ---
Subjective Interval history: Patient seen and examined at bedside this morning. She reports that she did have a severe episode of chest pain that lasted about 20 minutes last night. It was similar in nature to the previous chest pain. Patient reports that she had no troubles urinating last night. She feels anxious about her urination after having to be catheterized yesterday. She reports constipation but this is her norm. She has a history of IBS. She had just returned from her SAYRA. It was negative. Patient has not had her PFTs completed. Respiratory therapy was contacted and those will be completed this morning. Dr. Harp, infectious disease, was contacted and it was discussed with him that as long as the patient has a primary care provider to follow-up the pending labs, she may be discharged today. Pulmonology will be contacted following completion of the PFTs to ensure that they are okay with discharge this afternoon as well. <Cristel Dyson - 04/12/18 11:05> Results - Labs Result diagrams: 04/11/18 06:04 04/11/18 06:04 <Bart An - 04/12/18 12:13> Abnormal lab results 04/11/18 Range/Units 10:15 Urine Occult Blood Small H (Negative) Urine 04/11/18 Range/Units 10:15 Urine Color Straw (Yellw/Straw) Urine Clarity Clear (Clear) Urine pH 7.0 (5.0-8.5) Ur Specific [place] 1.003 (1.002-1.035) Urine Protein Negative (Neg-Trace) mg/dL Urine Glucose (UA) Negative (Negative) mg/dL <Cristel Dyson - 04/12/18 10:02> - Imaging Impressions Chest X-Ray 04/11/18 00:00 CONCLUSION: Negative examination. <Bart An - 04/12/18 12:13> Impressions Chest X-Ray 04/11/18 00:00 CONCLUSION: Negative examination. <Cristel Dyson - 04/12/18 10:02> Physical Exam Vital signs: Vital Signs 04/11/18 16:00 04/11/18 19:45 04/11/18 20:00 Temperature 98.0 F 98.5 F Pulse Rate 59 L 61 63 Respiratory Rate 18 18 Blood Pressure 113/71 111/67 Pulse Oximetry 100 96 04/11/18 23:45 04/12/18 00:00 04/12/18 03:45 Temperature 98.5 F Pulse Rate 63 60 67 Respiratory Rate 18 Blood Pressure 110/61 Pulse Oximetry 96 04/12/18 04:00 04/12/18 08:00 04/12/18 11:53 Temperature 97.5 F L 97.8 F Pulse Rate 70 56 L Respiratory Rate 18 20 Blood Pressure 165/61 H 110/61 Pulse Oximetry 98 96 99 Intake & Output 04/11/18 04/12/18 04/12/18 18:59 06:59 18:59 Intake Total 460 / 460 Balance 460 / 460 Intake: Oral 460 / 460 Other: Post Void Residual 3 Date of Last Bowel Movement 04/11/18 04/11/18 <Bart An - 04/12/18 12:13> Vital Signs 04/11/18 12:00 04/11/18 16:00 04/11/18 19:45 Temperature 97.5 F L 98.0 F Pulse Rate 61 59 L 61 Respiratory Rate 17 18 Blood Pressure 107/69 113/71 Pulse Oximetry 98 100 04/11/18 20:00 04/11/18 23:45 04/12/18 00:00 Temperature 98.5 F 98.5 F Pulse Rate 63 63 60 Respiratory Rate 18 18 Blood Pressure 111/67 110/61 Pulse Oximetry 96 96 04/12/18 03:45 04/12/18 04:00 Temperature 97.5 F L Pulse Rate 67 70 Respiratory Rate 18 Blood Pressure 165/61 H Pulse Oximetry 98 Intake & Output 04/11/18 04/12/18 04/12/18 18:59 06:59 18:59 Intake Total 460 / 460 Balance 460 / 460 Intake: Oral 460 / 460 Other: Post Void Residual 3 Date of Last Bowel Movement 04/11/18 <Cristel Dyson - 04/12/18 10:02> Narrative: GENERAL: Well-nourished well-developed, NAD SKIN: Cool and dry, no rash HEAD: Atraumatic. Normocephalic. EYES: No scleral icterus. No injection or drainage. EOMI. NECK: Trachea midline. Supple, nontender, no meningeal signs. CARDIOVASCULAR: RRR with no murmur, rub or gallop RESPIRATORY: Clear to auscultation bilaterally. GASTROINTESTINAL: Abdomen soft, nontender. Positive bowel sounds. MUSCULOSKELETAL: Extremities without clubbing, cyanosis. NEUROLOGICAL: Alert oriented 3. <Cristel Dyson - 04/12/18 11:05> - Urinary Catheter Management Straight Cath placed during this visit: no <AnBart - 04/12/18 12:13> yes, but has since been removed by the nurse <Cristel Dyson - 04/12/18 11:05> Reason for continuing: Not indwelling catheter <Cristel Dyson - 04/12/18 10:02> Insertion date: 04/11/18 <Cristel Dyson - 04/12/18 10:02> Insertion time: 09:51 <Cristel Dyson - 04/12/18 10:02> Removal date: 04/11/18 <Cristel Dyson - 04/12/18 10:02> Removal time: 09:51 <Cristel Dyson - 04/12/18 10:02> Assessment and Plan - Assessment (1) Nutrition, metabolism, and development symptoms Code(s): R63.8 - Other symptoms and signs concerning food and fluid intake Status: Acute (2) Pulmonary cavitary lesion Code(s): J98.4 - Other disorders of lung Status: Acute (3) Pleuritic chest pain Code(s): R07.81 - Pleurodynia Status: Acute (4) Pulmonary nodules/lesions, multiple Code(s): R91.8 - Other nonspecific abnormal finding of lung field Status: Acute (5) Depression with anxiety Code(s): F41.8 - Other specified anxiety disorders Status: Acute <Luiza Angeny - 04/12/18 12:13> (1) Nutrition, metabolism, and development symptoms Code(s): R63.8 - Other symptoms and signs concerning food and fluid intake Status: Acute (2) Pulmonary cavitary lesion Code(s): J98.4 - Other disorders of lung Status: Acute (3) Pleuritic chest pain Code(s): R07.81 - Pleurodynia Status: Acute (4) Pulmonary nodules/lesions, multiple Code(s): R91.8 - Other nonspecific abnormal finding of lung field Status: Acute (5) Depression with anxiety Code(s): F41.8 - Other specified anxiety disorders Status: Acute <Cristel Dyson - 04/12/18 10:51> - Assessment and Plan 27 YO female with PMHx panic attacks, lung collapse 1 year ago, IBD with possible Crohn's disease, ROCIO, and episodes of hypoglycemia who recently was worked up for pleuritic chest cavitary lesions vs septic emboli returns to the ED for recurrent pleuritic chest pain with increasing lesions since hospitalization 2 weeks ago. Consider malignancy vs infection vs autoimmune etiology. Impression on admission: CBC and CMP are both wnl Troponin <0.02 BNP wnl CRP 0.29 ESR 3 CXR negative CTA Chest negative for PE; predominantly upper lung field pulmonary infiltrates , some stable and some new compared to previous exam. Consider septic emboli vs scattered areas of PNA 1. Pleuritic chest pain with suspicious findings on chest CTA -Pulmonology consulted--appreciate recs -PFTS- PENDING -Bronchial wash culture -Quantiferon, CF, Histoplasma, Blastomyces, Coccidioides, Aspergillus, Alpha-1 antitrypsin, TESFAYE PENDING -Hepatitis negative -Toradol 15 mg IV q6h, pain 4-7 -Morphine 4 mg IV pain, pain 8-10 -EKG showing sinus bradycardia -Troponin <0.02 -SAYRA negative 2. Pulmonary lesions -ID consulted--appreciate recs -On previous hospitalization, Dr Harp did not believe these lesions were infectious -Hold antibiotic treatment due to lack of infectious etiology at this time -Obtain records from [facility] regarding patient's hospitalization for pneumothorax -See above for plan 3. Depression/anxiety -Continue home Prozac 20 mg daily and Buspar 10 mg TID 4. Vaginal candidiasis- RESOLVED -Fluconazole 150 p.o. once 5. FEN/GI/PPx: Fluids: PO fluids Electrolytes: wnl, follow with daily labs Nutrition: regular diet GI: Protonix 40 mg daily PPx: SCDs Tylenol pain 1-3, temp >100.4 Carolyn-colace BID Dispo: Patient will likely be dischrged today after discussing with pulmonology. She will follow up of her pending labs with her PCP. CM has been consulted to set up the patient with a PCP. Pt SDW Dr An and Dr. Phan <Cristel Dyson - 04/12/18 11:05> - Attending Attestation See the residents documentation for details. I saw and evaluated the patient regarding the bhatia portions of this evaluation and agree with the residents findings and plans as written. Parts of this note were created using [employer] voice recognition software program. While efforts were made to correct any mistakes made by this software, some mistakes, errors, and omissions may remain in the final note that were not caught when the note was originally created. Plan of care was discussed and agreed upon with the patient as specifically documented in the above note. An opportunity to ask questions with explanation was provided. Patient voiced understanding on all information reviewed and discussed. <Bart An - 04/12/18 12:13>
[2018-04-12 10:06] VITALS: RESP 20
--- NOTE | 2018-04-12 10:44 | ECHRPT ---
Indication: POSS SEPSIS, ENDOCARDITIS CONCLUSIONS Normal transesophageal echo. No cardiac source of septic embolism is identified. BP: / HR: Rhythm: Technical Quality: Medications Complications Proc. Components FINDINGS LEFT VENTRICLE Normal left ventricular size and wall thickness. The left ventricular systolic function is normal wi th an estimated ejection fraction in the range of 60-65%. Normal wall motion. RIGHT VENTRICLE Normal right ventricular size and systolic function. LEFT ATRIUM The left atrial size is normal. RIGHT ATRIUM The right atrial size is normal. ATRIAL APPENDAGES Normal. ATRIAL SEPTUM Normal atrial septal thickness without atrial level shunting by limited color doppler interrogation. AORTA The aortic root and proximal ascending aorta are normal in size on limited imaging. MITRAL VALVE Structurally normal mitral valve. No mitral valve stenosis or regurgitation. AORTIC VALVE Trileaflet aortic valve. No aortic valve stenosis or regurgitation. TRICUSPID VALVE Structurally normal tricuspid valve. No tricuspid valve stenosis or regurgitation. VESSELS The inferior vena cava is normal in size. PULMONARY VALVE The pulmonary valve is not well visualized. PERICADIUM No pericardial effusion. Mauricio Salinas MD (Electronically Signed) Final Date:12 April 2018 10:43
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
[2018-04-12 15:14] VITALS: BP 119/64; PULSE 68; TEMP 98; O2SAT 97
[2018-04-14 13:49] LABS: TB1 Ag minus Nil Result 0.01 IU/mL
[2018-04-14 16:07] LABS: Histoplasma Antigen Result Negative (Negative); Histoplasma Antigen Value 0 ng/mL
[2018-04-15 16:54] LABS: Histoplasma Abs Yeast Negative (Negative)
[2018-04-15 23:53] LABS: Histoplasma Antigen Result Negative (Negative); Histoplasma Antigen Value 0 ng/mL
[2018-04-17 16:41] LABS: Alpha 1 Antitrypsin 142 mg/dL (100 - 190); Cocci Immunodiffusion IgG Negative (Negative); Cryptococcus Ag Screen Negative (Negative)
== END 2018-04-12 16:00 | disposition home or self-care (01) ==
LOC: NEPE 13:32 → NEDA 16:46 → N04 20:00 → NEDA 20:03
PROVIDERS: ADMIT Family Medicine; ATTEND Family Medicine